=== PATIENT | female | born 1950 | race Two or more races ===

== ENCOUNTER 2020-08-06 13:16 | Outpatient (CLI) | payer MEDICARE, OTHER | END 2020-08-06 23:59 | disposition home or self-care (01) | LOC: CT 13:16 | DX: D35.01 Benign neoplasm of right adrenal gland (principal); N13.2 Hydronephrosis with renal and ureteral calculous obstruction; N73.9 Female pelvic inflammatory disease, unspecified; I70.0 Atherosclerosis of aorta | CPT/HCPCS: 72192-TC ==

== ENCOUNTER 2020-09-28 15:47 | Inpatient (IN) | payer MEDICARE, OTHER ==
[~2020-09-28] VITALS: Ht 162.6 cm; Wt 129.3 kg
--- NOTE | 2020-09-28 16:00 | NUR ---
drew from [facility] for witnessed syncope. vent dependent bg 200 [employer]. vs checked. iv access started on L ac g20. blood draw done sent to lab. seen by
[2020-09-28 17:35] LABS: BASOPHILS # (AUTO) 0.1 /CMM (0.0-0.2); BASOPHILS % (AUTO) 0.5 % (0.0-2.0); EOSINOPHILS % (AUTO) 0.8 % (0.0-6.0); HEMATOCRIT 36 % (33-45); HEMOGLOBIN 11.5 g/dL (11.5-14.8); LYMPHOCYTES # (AUTO) 1.2 /CMM (0.8-4.8); LYMPHOCYTES % (AUTO) 10.7 % (20.0-44.0); MEAN CORPUSCULAR HGB CONC 32 g/dl (31.0-36.0); MEAN CORPUSCULAR VOLUME 90 fL (82-100); MONOCYTES # (AUTO) 0.8 /CMM (0.1-1.30); MONOCYTES % (AUTO) 7.2 % (2.0-12.0); NEUTROPHILS # (AUTO) 8.8 /CMM (1.8-8.9); NEUTROPHILS % (AUTO) 80.8 % (43.0-81.0); PLATELET COUNT (AUTO) 146 /CMM (150-450); WHITE BLOOD COUNT (AUTO) 10.9 K/uL (4.3-11.0)
[2020-09-28 17:41] LABS: CALCIUM, SERUM 9.2 mg/dL (8.5-10.1); CARBON DIOXIDE 30 mmol/L (21-32); CHLORIDE 104 mmol/L (98-107); CREATININE 1.4 mg/dL (0.6-1.3); GLUCOSE 171 mg/dL (74-106); POTASSIUM 4.8 mmol/L (3.5-5.1); SODIUM SERUM 141 mmol/L (136-145); UREA NITROGEN, BLOOD 37 mg/dL (7-18)
[2020-09-28 17:47] LABS: ALANINE AMINOTRANSFERASE 38 U/L (12-78); ALBUMIN 3.4 g/dL (3.4-5.0); ALKALINE PHOSPHATASE 204 U/L (46-116); ASPARTATE AMINOTRANSFERASE 48 U/L (15-37); BILIRUBIN,DIRECT 0.1 mg/dL (0.0-0.2); BILIRUBIN,TOTAL 0.2 mg/dL (0.2-1.0); TOTAL PROTEIN, SERUM 9.4 g/dL (6.4-8.2)
[2020-09-28] MEDS ORDERED: DEXT1DRO3 OP (18:25)
[2020-09-28] MEDS ORDERED: ZINC220C6 PO (18:25)
[2020-09-28] MEDS ORDERED: AZEL205. NS (18:25)
[2020-09-28] MEDS ORDERED: CRAN3875 PO (18:25)
[2020-09-28] MEDS ORDERED: INSU100I4 SQ (18:25)
[2020-09-28] MEDS ORDERED: CLON0.2T PO (18:25)
[2020-09-28] MEDS ORDERED: MAGN400O6 PO (18:25)
[2020-09-28] MEDS ORDERED: DOCU-141 PO (18:25)
[2020-09-28] MEDS ORDERED: AMLO5TAB4 PO (18:25)
[2020-09-28] MEDS ORDERED: ACET325T53 PO (18:25)
[2020-09-28] MEDS ORDERED: BUSP5TAB3 PO (18:25)
[2020-09-28] MEDS ORDERED: ZOLP5TAB2 PO (18:25)
[2020-09-28] MEDS ORDERED: HYDR-4384 PO (18:25)
[2020-09-28] MEDS ORDERED: CHLO473M3 MM (18:25)
[2020-09-28] MEDS ORDERED: OMEP20CA15 PO (18:25)
[2020-09-28] MEDS ORDERED: HEPA100D33 SUBCUT (18:25)
[2020-09-28] MEDS ORDERED: EPOE1VIA7 IJ (18:25)
[2020-09-28] MEDS ORDERED: MONT10TA22 PO (18:25)
[2020-09-28] MEDS ORDERED: AMIN887L PO (18:25)
[2020-09-28] MEDS ORDERED: POTA20TA83 PO (18:25)
[2020-09-28] MEDS ORDERED: ALLO100T PO (18:25)
[2020-09-28] MEDS ORDERED: FURO-145 PO (18:25)
[2020-09-28] MEDS ORDERED: SENN-175 PO (18:25)
[2020-09-28] MEDS ORDERED: BISA10SU11 RC (18:25)
[2020-09-28] MEDS ORDERED: MIDO10TA PO (18:25)
[2020-09-28] MEDS ORDERED: LIDO700A30 TP (18:25)
[2020-09-28] MEDS ORDERED: TAMS-12 PO (18:25)
[2020-09-28] MEDS ORDERED: NA P133E RC (18:25)
[2020-09-28] MEDS ORDERED: ACET-2605 PO ×2 (18:25)
[2020-09-28] MEDS ORDERED: LEVO25TA7 PO (18:25)
[2020-09-28] MEDS ORDERED: FERR325T23 PO (18:25)
[2020-09-28] MEDS ORDERED: BIOT10004 PO (18:25)
[2020-09-28] MEDS ORDERED: IPRA4AER IH ×2 (18:25)
--- NOTE | 2020-09-28 18:31 | NUR ---
PANEL PARCEL POST CARRIER PAGED
[2020-09-28] MEDS ORDERED: MAG HYDROX/AL HYDROX/SIMETH 30 ML UDC PO PRN (19:00)
[2020-09-28] MEDS ORDERED: MAGNESIUM HYDROXIDE 30 ML UDC PO PRN (19:00)
[2020-09-28] MEDS ORDERED: Z GUARD REMEDY 2 OZ OINT TP PRN (19:00)
[2020-09-28] MEDS ORDERED: ONDANSETRON HCL/PF 4 MG/2 ML VIAL IVP PRN (19:00)
[2020-09-28] MEDS ORDERED: ACETAMINOPHEN 325 MG TABLET PO PRN (19:00)
[2020-09-28] MEDS ORDERED: ZOLPIDEM TARTRATE 5 MG TABLET PO PRN (19:00)
--- NOTE | 2020-09-28 19:40 | NUR ---
PT ALERT. PT REFUSED TO ANSWER QUESTIONS, AGITATED. VSS. PT CONNECTED TO THE MONITOR AND POX. WILL CONTINUE TO MONITOR
--- NOTE | 2020-09-28 21:00 | NUR ---
RT AT BEDSIDE
--- NOTE | 2020-09-28 21:41 | NUR ---
PT REPOSITIONED FOR COMFORT. NAD NOTED AT THIS TIME. WILL CONTINUE TO MONITOR PT.
--- NOTE | 2020-09-28 23:06 | NUR ---
VENT SETTINGS: O2:50% RR:16 PEEP:5
--- NOTE | 2020-09-29 03:28 | NUR ---
PT REPOSITIONED ON HER RIGHT SIDE FOR COMFORT. NAD NOTED AT THIS TIME. WILL CONTINUE TO MONITOR PT.
--- NOTE | 2020-09-29 04:38 | NUR ---
RT pt received on mechanical vent with current settings. vent plugged in to red outlet. alarms on and audible. trached, shiley 6 xlt. spare trach at bedside. trach secure with tie. ambu bag at hob. no sob, no resp distress. minimal secretions suctioned via trach. trach care done.
--- NOTE | 2020-09-29 05:53 | NUR ---
PT AWAKE AND WATCHING TV. PT REPOSITIONED ON A SITTING POSITION. PT HAS NO COMPLAINTS AT THIS TIME. WILL CONTINUE TO MONITOR
[2020-09-29 06:06] LABS: BASOPHILS % (AUTO) 0.8 % (0.0-2.0); EOSINOPHILS % (AUTO) 3.8 % (0.0-6.0); HEMATOCRIT 33 % (33-45); HEMOGLOBIN 10.6 g/dL (11.5-14.8); LYMPHOCYTES # (AUTO) 1.8 /CMM (0.8-4.8); LYMPHOCYTES % (AUTO) 30.7 % (20.0-44.0); MEAN CORPUSCULAR HGB CONC 32 g/dl (31.0-36.0); MEAN CORPUSCULAR VOLUME 89 fL (82-100); MONOCYTES # (AUTO) 0.5 /CMM (0.1-1.30); NEUTROPHILS # (AUTO) 3.2 /CMM (1.8-8.9); NEUTROPHILS % (AUTO) 55.7 % (43.0-81.0); PLATELET COUNT (AUTO) 129 /CMM (150-450); RED BLOOD CELL COUNT(AUTO) 3.72 MIL/uL (4.0-5.2); WHITE BLOOD COUNT (AUTO) 5.8 K/uL (4.3-11.0)
[2020-09-29 06:22] LABS: CREATININE 1.2 mg/dL (0.6-1.3); MAGNESIUM 2.3 mg/dL (1.8-2.4); PHOSPHORUS 4.2 mg/dL (2.5-4.9); POTASSIUM 4.1 mmol/L (3.5-5.1)
[2020-09-29 07:50] LABS: THYROID STIMULATING HORMONE 7.106 uIU/mL (0.358-3.74)
[2020-09-29] MEDS: FUROSEMIDE 40 MG/4 ML VIAL IV SCH (08:24)
[2020-09-29] MEDS ORDERED: HYDROCODONE/APAP 5/325MG TABLET ONE ×2 (08:25→14:44)
[2020-09-29] MEDS: HYDROCODONE/APAP 5/325MG TABLET PO PRN ×2 (08:25→14:45)
--- NOTE | 2020-09-29 12:12 | NUR ---
adl care provided. turned and repositioned. wound care done.kept clean and comfortable
--- NOTE | 2020-09-29 19:47 | NUR ---
Pt sat 95%, stated she could not breath, no acute distress noted. Pt was suctioned. vss. Will continue to monitor pt.
--- NOTE | 2020-09-29 20:20 | NUR ---
PT NOTED DIAPHORETIC, TEMP CHECKED 98.3, BG OF 178.
--- NOTE | 2020-09-29 20:46 | NUR ---
PT RESTING COMFORTABLY. REPOSITIONED. PROVIDED WITH COOL BLANKETS.
--- NOTE | 2020-09-29 22:29 | NUR ---
PT MOVED INTO A BIGGER BED, REPOSITIONED, RESTING COMFORTABLY. PT ASKED FOR FOOD, PROVIDED WITH SANDWHICH.
--- NOTE | 2020-09-30 01:41 | NUR ---
PT REQUESTED TO BE SUCTIONED. PT SUCTIONED, REPOSITIONED IN BED, ON MONITOR AND PULSE OX. VSS.
--- NOTE | 2020-09-30 02:01 | NUR ---
RT AT BEDSIDE SPEAKING TO PT.
--- NOTE | 2020-09-30 03:11 | NUR ---
PT RESTING COMFORTABLY. VSS. WATCHING TV.
--- NOTE | 2020-09-30 05:09 | NUR ---
PT REQUESTED TO BE REPOSITIONED, PT'S FOOD REPOSITIONED. PT NOW IN BED, WATCHING TV. VSS.
--- NOTE | 2020-09-30 07:42 | NUR ---
REPORT GIVEN TO GISELA HAN FOR TARA
[2020-09-30] MEDS: FUROSEMIDE 40 MG/4 ML VIAL IV SCH (10:00)
--- NOTE | 2020-09-30 12:55 | NUR ---
pts bp still elevated at 192/78 hr 91. no c/o headache, chest pain or n/v. dr. suarez made aware. awaiting for response
--- NOTE | 2020-09-30 13:53 | NUR ---
DR REARDON RESPONDED. PER , ADD HYDRALAZINE 25MG 1 TAB PO Q6HRS PRN FOR SBP >160
[2020-09-30] MEDS ORDERED: hydrALAZINE HCL 25 MG TABLET PO PRN (14:00)
[2020-09-30] MEDS ORDERED: CLONIDINE HCL 0.1 MG TABLET PO PRN (18:00)
[2020-09-30] MEDS ORDERED: HYPROMELLOSE OP PRN (19:00)
[2020-09-30] MEDS ORDERED: BISACODYL SUPP (10 MG) 10 MG/SUPP.RECT SUPP.RECT RC PRN (19:00)
[2020-09-30] MEDS ORDERED: NA PHOS,M-B/NA PHOS,DI-BA 1 EA ENEMA RC PRN (19:00)
[2020-09-30] MEDS ORDERED: DEXTRAN OP PRN (19:00)
[2020-09-30] MEDS ORDERED: Medication Not On Formulary EA (Ipratropium/Albuterol Sulfate (Combivent Respimat 20-100 IH PRN (19:00)
[2020-09-30] MEDS ORDERED: MAGNESIUM HYDROXIDE 30 ML UDC PO PRN (19:00)
[2020-09-30] MEDS ORDERED: ZOLPIDEM TARTRATE 5 MG TABLET PO PRN (19:00)
--- NOTE | 2020-09-30 19:40 | NUR ---
report given to shaneka whitaker
--- NOTE | 2020-09-30 20:50 | NUR ---
PATIENT IS REPOSITIONED W/ PILLOWS CUSHION TO RELIEVE PRESSURE OFF SACRAL.
[2020-09-30] MEDS: MONTELUKAST SODIUM (10MG) 10 MG TABLET PO SCH (22:00)
[2020-09-30] MEDS ORDERED: MONTELUKAST SODIUM (10MG) 10 MG TABLET ONE (23:51)
--- NOTE | 2020-10-01 00:07 | NUR ---
PATIENT REPOSITIONED FOR PRESSURE RELIEF.
--- NOTE | 2020-10-01 00:17 | NUR ---
PATIENT WANTED TO REMOVE EYE BOOGERS, EYE CARE PROVIDED.
--- NOTE | 2020-10-01 00:28 | NUR ---
TRACH CARE PROVIDED.
--- NOTE | 2020-10-01 04:19 | NUR ---
PATIENT IS C/O PAIN UNDER BUTTOCKS 3/10. TYLENOL GIVEN FOR PRN ORDER.
--- NOTE | 2020-10-01 04:28 | NUR ---
TRACH CARE PROVIDED. PATIENT IS HELPED WITH WASHING EYES. PATIENT IS REPOSITIONED WITH PILLOWS UNDER BOTTOCKS.
--- NOTE | 2020-10-01 04:52 | NUR ---
PATIENT IS REPOSITIONED FOR COMFORT.
[2020-10-01 05:46] LABS: BASOPHILS # (AUTO) 0.1 /CMM (0.0-0.2); BASOPHILS % (AUTO) 0.7 % (0.0-2.0); EOSINOPHILS % (AUTO) 3.7 % (0.0-6.0); HEMATOCRIT 38 % (33-45); HEMOGLOBIN 12.1 g/dL (11.5-14.8); LYMPHOCYTES # (AUTO) 2.3 /CMM (0.8-4.8); LYMPHOCYTES % (AUTO) 27.2 % (20.0-44.0); MEAN CORPUSCULAR HGB CONC 32 g/dl (31.0-36.0); MEAN CORPUSCULAR VOLUME 89 fL (82-100); MONOCYTES # (AUTO) 0.8 /CMM (0.1-1.30); MONOCYTES % (AUTO) 8.8 % (2.0-12.0); NEUTROPHILS # (AUTO) 5.1 /CMM (1.8-8.9); NEUTROPHILS % (AUTO) 59.6 % (43.0-81.0); PLATELET COUNT (AUTO) 161 /CMM (150-450); RED BLOOD CELL COUNT(AUTO) 4.25 MIL/uL (4.0-5.2); WHITE BLOOD COUNT (AUTO) 8.5 K/uL (4.3-11.0)
[2020-10-01 05:58] LABS: CALCIUM, SERUM 9.4 mg/dL (8.5-10.1); CARBON DIOXIDE 34 mmol/L (21-32); CHLORIDE 101 mmol/L (98-107); CREATININE 1.5 mg/dL (0.6-1.3); GLUCOSE 129 mg/dL (74-106); MAGNESIUM 2.1 mg/dL (1.8-2.4); PHOSPHORUS 4.2 mg/dL (2.5-4.9); POTASSIUM 3.9 mmol/L (3.5-5.1); SODIUM SERUM 141 mmol/L (136-145); UREA NITROGEN, BLOOD 38 mg/dL (7-18)
[2020-10-01] MEDS: LEVOTHYROXINE SODIUM 25 MCG TABLET PO SCH (08:00)
[2020-10-01] MEDS ORDERED: POLYVINYL ALCOHOL 15 ML BOTTLE OP PRN (09:00)
[2020-10-01] MEDS ORDERED: FERROUS SULFATE (325 MG) 325 MG/TAB TABLET PO SCH (09:00)
[2020-10-01] MEDS ORDERED: BIOTIN 2000 MCG PO SCH (09:00)
[2020-10-01] MEDS ORDERED: Medication Not On Formulary EA (Cran/Vitc/Mannose/Inulin/Brom (Uti-Stat Liquid) 30 ML) PO SCH (09:00)
[2020-10-01] MEDS ORDERED: POTASSIUM CHLORIDE 20 MEQ TAB.PRT.SR PO SCH (09:00)
[2020-10-01] MEDS ORDERED: IPRATROPIUM NEB FS 0.5 MG/2.5 ML AMPUL.NEB NEB PRN (09:00)
--- NOTE | 2020-10-01 09:12 | NUR ---
PATIENT PROVIDED W BREAKFAST. TOLERATED PO WELL
--- NOTE | 2020-10-01 09:32 | NUR ---
PATIENT PROVIDED W BREAKFAST. TOLERATING PO WELL.
[2020-10-01] MEDS: SENNOSIDES 8.6 MG TABLET PO SCH ×2 (09:43→19:00)
[2020-10-01] MEDS: ZINC SULFATE 220 MG CAPSULE PO SCH (09:43)
[2020-10-01] MEDS: DOCUSATE SODIUM 100 MG CAPSULE PO SCH ×2 (09:43→18:59)
[2020-10-01] MEDS: TAMSULOSIN 0.4 MG CAP.SR.24H PO SCH (09:43)
[2020-10-01] MEDS: FUROSEMIDE 40 MG/4 ML VIAL IV SCH (09:43)
[2020-10-01] MEDS: ALLOPURINOL 100 MG TABLET PO SCH (09:43)
[2020-10-01] MEDS: busPIRone 5 MG TABLET PO SCH ×2 (09:43→19:00)
[2020-10-01] MEDS: PROSTAT (PYXIS) 30 ML UDC PO SCH (10:02)
[2020-10-01] MEDS: AZELASTINE NASAL SPRAY 30 ML BOTTLE NS SCH ×2 (10:22→18:48)
[2020-10-01] MEDS: IPRATROPIUM NEB FS 0.5 MG/2.5 ML AMPUL.NEB NEB SCH ×3 (10:30→19:44)
[2020-10-01] MEDS: ALBUTEROL HALF STRENGTH 1.25 MG/3 ML VIAL.NEB NEB SCH ×3 (10:30→19:44)
[2020-10-01] MEDS: LIDOCAINE 5% (PATCH) 1 EA PATCH TP SCH (10:30)
[2020-10-01] MEDS: AMLODIPINE BESYLATE 5 MG TABLET PO SCH (10:30)
[2020-10-01] MEDS: FIXODENT DENTURE ADHESIVE TUBE MM SCH ×2 (10:42→18:48)
--- NOTE | 2020-10-01 10:55 | NUR ---
CONTACTED RT FOR BREATHING TX
[2020-10-01 11:36] LABS: ABG BASE EXCESS 4.8 mmol/L; ABG OXYGEN SATURATION 97.5 % (92.0-98.5); ABG PCO2 57.4 mmHg (35.0-45.0); ABG PH 7.359 (7.350-7.450); ABG PO2 100.8 mmHg (75.0-100.0); AaDO2 118.4 mmHg; COHb 0.7 % (0.5-1.5); MetHb 0.4 % (0.0-1.5); O2Hb 96.4 % (94.0-97.0); SITE, ABG Right Radial; VENT MODE, BG ac 16 500+5 40%
[2020-10-01 11:45] LABS: IRON, SERUM 46 ug/dl (50-175); TOTAL IRON BINDING CAPACITY 193 ug/dl (250-450)
--- NOTE | 2020-10-01 12:22 | NUR ---
PATIENT REPOSITIONED FOR COMFORT
[2020-10-01 12:28] LABS: FERRITIN 160 ng/mL (8-388)
[2020-10-01] MEDS: hydrALAZINE HCL 50 MG TABLET PO SCH ×2 (13:00→19:01)
--- NOTE | 2020-10-01 13:00 | NUR ---
APRESOLINE 50MG PO NOT AVAILABLE FROM PHARMACY. FOLLOWED UP WITH CARON DIET COUNSELOR FOR A CHANGE OF ORDER, AWAITING CALL BACK.
--- NOTE | 2020-10-01 13:02 | NUR ---
PATIENT PROVIDED W LUNCH. TOLERATED PO WELL
[2020-10-01] MEDS ORDERED: AZELASTINE NASAL SPRAY 30 ML BOTTLE NS ONE (14:03)
--- NOTE | 2020-10-01 16:07 | NUR ---
PATIENT REPOSITIONED FOR COMFORT
--- NOTE | 2020-10-01 16:23 | NUR ---
GOT BED 327-1 RN IS MORAIMA
--- NOTE | 2020-10-01 17:55 | NUR ---
REPORT GIVEN TO ROSEMARY HAN OF TELE UNIT
[2020-10-01 18:10] VITALS: BP 141/64
--- NOTE | 2020-10-01 19:23 | NUR ---
PRODUCT MARKETING ANALYST ADMITTING NOTES ADMITTED PT TO UNIT AT 1805 VIA GURNEY ACCOMPANIED BY E.R KELLIE SUAZO, GRETEL MADISON AND RT. PT IS A/O X3-4. VERBALLY RESPONSIVE, NO C/O PAIN OR ANY DISCOMFORTS AT THIS TIME. PT WITH DX OF SYNCOPE BUT NO C/O SYNCOPE AT THIS TIME. PT ORIENTED TO UNIT AND STAFF. V/S TAKEN AND RECORDED. PT WITH TRACH SHILEY #6 XLY CONNECTED TO MECHANICAL VENTILATOR AT PRESCRIBED PARAMETERS OF AC 500, R 16, FI02 50% AND PEEP 5, TOLERATING SETTINGS WELL WITH NO ACUTE RESPIRATORY DISTRESS NOTED. PT WITH IV ACCESS NOTED ON LAC G#20 INTACT, PATENT AND FLUSHES WELL. PHOTOS OF SKIN ISSUES TAKEN AND FILED IN CHART. EXTERNAL TELEMONITOR APPLIED AND SHOWS CURRENT READING OF SR/ST WITH HR OF 90-105, NO C/O CARDIAC DISTRESS VOICED. DOYLE IN PLACE DRAINING TO GRAVITY CLOUDY YELLOW URINE. SAFETY MEASURES IMPLEMENTED; HOB KEPT ELEVATED. BED PLACED IN LOWEST LOCKED POSITION WITH SR UP X2. CALL LIGHT PLACED W/I EASY REACH OF PT. WILL ENDORSE TO PIN PULLER NURSE FOR TARA.
--- NOTE | 2020-10-01 19:41 | NUR ---
INSPECTOR ADVANCED COMPOSITE NOTES PATIENT ADMITTED TO MEDSURG UNIT FROM ER, WITH NO PERSONAL BELONGINGS. PATIENT ASKING FOR HER BAG. CALLED ER WITH NO RESPONSE. MEDICATIONS BROUGHT FROM ER. WILL ENDORSE TO CHEMICAL COMPOUNDER NURSE.
--- NOTE | 2020-10-01 19:45 | NUR ---
TELERN FULLY AWAKE ABLE TO VERBALIZE HER NEEDS, A/L X3 TO 4. NO RESPIRATORY DISTRESS. PATIENT ON PORTABLE VENT. SUCTIONS SELF ORALLY NEEDED. STATES LOST HER BELONGINGS WILL CALL AND [facility]. ALL NEEDS MADE.
[2020-10-01 20:45] VITALS: BP 137/94
--- NOTE | 2020-10-01 21:30 | NUR ---
TELERN MULTIPLE NEEDS, NEEDS FREQ REPOSITIONING PER PATIENTS COMFORT. SEEN BY RT. PER RT PATIENT CAN USE HER PORTABLE VENT. DUE MEDS ADMINISTERED CRUSHED WITH APPLSAUCE. ASSISTED. ER STAFF ABLE TO FIND HER BELONGING. GIVEN TO PATIENT.
[2020-10-01] MEDS: MONTELUKAST SODIUM (10MG) 10 MG TABLET PO SCH (22:49)
--- NOTE | 2020-10-01 23:20 | NUR ---
TELERN UNABLE TO GET SELF COMFORTABLE. REPOSITIONED, STAYED WITH PATIENT FOR AWHILE. MULTI NEEDS ALL ATTENDED.
[2020-10-01] MEDS: HYDROCODONE/APAP 5/325MG TABLET PO PRN (23:36)
[2020-10-02] MEDS: ALBUTEROL HALF STRENGTH 1.25 MG/3 ML VIAL.NEB NEB SCH ×4 (01:36→19:29)
[2020-10-02] MEDS: IPRATROPIUM NEB FS 0.5 MG/2.5 ML AMPUL.NEB NEB SCH ×4 (01:36→19:29)
--- NOTE | 2020-10-02 03:46 | NUR ---
TELERN ASLEEP OF THIS TIME, PROVIDED QUIET ENVIRONMENT. CLOSELY WATCHED.
--- NOTE | 2020-10-02 06:42 | NUR ---
TELERN SLEEPING IRRITABLE WHEN BOTHERED..REMAINS SR ON THE MONITOR.
[2020-10-02 07:27] LABS: BASOPHILS # (AUTO) 0.1 /CMM (0.0-0.2); BASOPHILS % (AUTO) 0.9 % (0.0-2.0); EOSINOPHILS % (AUTO) 6.8 % (0.0-6.0); HEMATOCRIT 33 % (33-45); HEMOGLOBIN 10.6 g/dL (11.5-14.8); LYMPHOCYTES % (AUTO) 24.3 % (20.0-44.0); MEAN CORPUSCULAR HGB CONC 32 g/dl (31.0-36.0); MEAN CORPUSCULAR VOLUME 89 fL (82-100); MONOCYTES # (AUTO) 0.8 /CMM (0.1-1.30); MONOCYTES % (AUTO) 9.7 % (2.0-12.0); NEUTROPHILS # (AUTO) 4.9 /CMM (1.8-8.9); NEUTROPHILS % (AUTO) 58.3 % (43.0-81.0); PLATELET COUNT (AUTO) 149 /CMM (150-450); RED BLOOD CELL COUNT(AUTO) 3.74 MIL/uL (4.0-5.2); WHITE BLOOD COUNT (AUTO) 8.3 K/uL (4.3-11.0)
[2020-10-02 07:42] LABS: CALCIUM, SERUM 9.1 mg/dL (8.5-10.1); CARBON DIOXIDE 34 mmol/L (21-32); CHLORIDE 103 mmol/L (98-107); CREATININE 1.6 mg/dL (0.6-1.3); GLUCOSE 113 mg/dL (74-106); MAGNESIUM 2.2 mg/dL (1.8-2.4); PHOSPHORUS 3.9 mg/dL (2.5-4.9); POTASSIUM 3.7 mmol/L (3.5-5.1); SODIUM SERUM 142 mmol/L (136-145); UREA NITROGEN, BLOOD 45 mg/dL (7-18)
[2020-10-02 08:00] VITALS: BP 118/59
--- NOTE | 2020-10-02 08:05 | NUR ---
ENTRY SPECIALISTS OPENING NOTE PATIENT IS IN BED RESTING COMFORTABLY. PATIENT IS ON VENT WITH SETTINGS OF AC 500, R 16, FI02 50%, AND PEEP 5. PATIENT TOLERATING WELL WITH NO ACUTE DISTRESS. PATIENT IS ON INSTITUTIONAL RESEARCH COORDINATOR READING SR WITH PAC 87. NO FACIAL GRIMACING OR SIGNS OF PAIN PRESENT. BED ALARM IS ON. CALL LIGHT WITHIN REACH. BED IS IN THE LOWEST POSITION WITH SIDES RAILS UP. WILL CONTINUE TO MONITOR.
[2020-10-02] MEDS: hydrALAZINE HCL 50 MG TABLET PO SCH ×3 (09:00→17:54)
[2020-10-02] MEDS: AMLODIPINE BESYLATE 5 MG TABLET PO SCH (09:00)
--- NOTE | 2020-10-02 09:09 | NUR ---
WOUND CARE CONSULT: PT REFUSED SKIN ASSESSMENT AT THIS TIME. REVIEWED CHART, NURSING DOCUMENTATION AND PHOTOS WHICH INDICATE FULL THICKNESS WOUNDS TO SACRUM AND BUTTOCKS WELL PERIANAL OPEN SKIN , PRESENT ON ADMISSION. RECOMMEND SURGICAL CONSULT. DR GARNER NOTIFIED OF CONSULT REQUEST. RECOMMENDATIONS MADE FOR SKIN PROTECTION. DISCUSSED WITH NURSING STAFF. MD IN AGREEMENT WITH PLAN OF CARE.
[2020-10-02] MEDS: TAMSULOSIN 0.4 MG CAP.SR.24H PO SCH (09:47)
[2020-10-02] MEDS: LEVOTHYROXINE SODIUM 25 MCG TABLET PO SCH (09:47)
[2020-10-02] MEDS: SENNOSIDES 8.6 MG TABLET PO SCH ×2 (09:48→17:54)
[2020-10-02] MEDS: busPIRone 5 MG TABLET PO SCH ×2 (09:48→17:54)
[2020-10-02] MEDS: ZINC SULFATE 220 MG CAPSULE PO SCH (09:48)
[2020-10-02] MEDS: ALLOPURINOL 100 MG TABLET PO SCH (09:48)
[2020-10-02] MEDS: LIDOCAINE 5% (PATCH) 1 EA PATCH TP SCH (09:48)
[2020-10-02] MEDS: DOCUSATE SODIUM 100 MG CAPSULE PO SCH ×2 (09:48→17:54)
[2020-10-02] MEDS: FIXODENT DENTURE ADHESIVE TUBE MM SCH ×2 (09:51→17:55)
[2020-10-02] MEDS: AZELASTINE NASAL SPRAY 30 ML BOTTLE NS SCH ×2 (09:52→17:56)
[2020-10-02 10:13] LABS: ABG BASE EXCESS 4.8 mmol/L; ABG OXYGEN SATURATION 96.9 % (92.0-98.5); ABG PCO2 52.8 mmHg (35.0-45.0); ABG PH 7.386 (7.350-7.450); AaDO2 140.5 mmHg; COHb 0.6 % (0.5-1.5); MetHb 0.3 % (0.0-1.5); SITE, ABG Right Radial; VENT MODE, BG AC 16 500 40% +5
--- NOTE | 2020-10-02 10:16 | NUR ---
TURRET PUNCH PRESS OPERATOR NOTE DID NOT ADMINISTER SCHEDULED MEDICATIONS HYDRALAZINE AND AMLODIPINE DUE TO DECREASED BLOOD PRESSURE OF 118/59.
[2020-10-02] MEDS: PROSTAT (PYXIS) 30 ML UDC PO SCH (10:35)
[2020-10-02] MEDS ORDERED: LORAZEPAM 1 MG TABLET PO PRN (14:00)
--- NOTE | 2020-10-02 15:58 | NUR ---
IRRIGATIONIST DESIGNER NOTE PATIENT REQUESTED ATIVAN, AFTER PULLING AND SCANNING AND CRUSHING, PATIENT REALIZED HER TRACH BALLOON IS INFLATED AT THIS TIME. HOLDING ATIVAN, UNTIL RT WILL DEFLATE TRACH BALLOON.
[2020-10-02 16:00] VITALS: BP 131/76
--- NOTE | 2020-10-02 17:55 | NUR ---
TRAUMA DIRECTOR NOTE PATIENT TOLERATED INFLATED TACHE BALLOON FOR 2 HRS. RT DEFLATED BALLOON, PATIENT TOOK HER SCHEDULED MEDICATIONS INCLUDING ATIVAN.
--- NOTE | 2020-10-02 19:00 | NUR ---
MANUAL TESTER CLOSING NOTES PATIENT IS IN BED RESTING COMFORTABLY. PATIENT IS IN NO ACUTE DISTRESS. NO SOB NOTED. PATIENT IS ON VENT WITH BALLOON DEFLATED AT THE MOMENT. PATIENT IS ON DELIVERY MAN READING SR BBB 102. PATIENT KEPT CLEAN DRY, AND COMFORTABLE THROUGHOUT THE SHIFT BED ALARM IS ON. CALL LIGHT WITHIN REACH. BED IS IN THE LOWEST POSITION WITH SIDES RAILS UP. ENDORSE TO SENIOR SCHEDULER NURSE FOR TARA.
[2020-10-02 20:00] VITALS: BP 108/72
--- NOTE | 2020-10-02 20:31 | NUR ---
RN OPENING NOTES PATIENT RECEIVED RESTING IN BED A/O X 4. TOLERATING VENT SETTINGS WELL BREATHING EVEN AND UNLABORED, NO SOB NOTED. NO SIGNS OF ACUTE DISTRESS. NO COMPLAINTS OF PAIN OR DISCOMFORT AT THE MOMENT. DOYLE CATH NOTED AND IN PLACE. IV LOCATED ON L AC #20 SL. SAFETY PRECAUTIONS IN PLACE WITH BED IN LOWEST POSITION, CALL LIGHT WITHIN REACH, BREAKS ON, SIDE RAILS UP.
[2020-10-02] MEDS: MONTELUKAST SODIUM (10MG) 10 MG TABLET PO SCH (21:38)
[2020-10-03] VITALS (22 sets, daily range): BP systolic 77–206; BP diastolic 21–107
--- NOTE | 2020-10-03 00:30 | NUR ---
NEW DOYLE REINSERTED D/T REMOVAL DURING REPOSITIONING
[2020-10-03] MEDS: ALBUTEROL HALF STRENGTH 1.25 MG/3 ML VIAL.NEB NEB SCH ×4 (01:30→20:05)
[2020-10-03] MEDS: IPRATROPIUM NEB FS 0.5 MG/2.5 ML AMPUL.NEB NEB SCH ×4 (01:30→20:05)
[2020-10-03] MEDS: LEVOTHYROXINE SODIUM 25 MCG TABLET PO SCH (06:03)
--- NOTE | 2020-10-03 06:42 | NUR ---
RN OPENING NOTES PATIENT RESTING IN BED A/O X 3. TOLERATING VENT SETTINGS WELL BREATHING EVEN AND UNLABORED, NO SOB NOTED. NO SIGNS OF ACUTE DISTRESS. NO COMPLAINTS OF PAIN OR DISCOMFORT AT THE MOMENT. DOYLE CATH NOTED AND IN PLACE. IV LOCATED ON L AC #20 SL. SAFETY PRECAUTIONS IN PLACE WITH BED IN LOWEST POSITION, CALL LIGHT WITHIN REACH, BREAKS ON, SIDE RAILS UP. PATIENT KEPT CLEAN AND DRY THROUGHOUT THE NIGHT. ALL NEEDS ATTENDED TO. WILL ENDORSE TO ONCOMING SHIFT ABOUT TARA.
--- NOTE | 2020-10-03 07:30 | NUR ---
rn walked in to rm.being called by orientee to check on pt.rr called pt. slumped over,sitting up,non responsive,dusky color.
--- NOTE | 2020-10-03 07:31 | NUR ---
code blue called.see code blue record.
--- NOTE | 2020-10-03 07:50 | NUR ---
ekg,chest x-ray and labs ordered.transported to icu rm.258.via bed.belongings sent with pt.
--- NOTE | 2020-10-03 07:51 | NUR ---
report to skein yarn drier.
[2020-10-03 08:07] LABS: BASOPHILS # (AUTO) 0.1 /CMM (0.0-0.2); BASOPHILS % (AUTO) 0.6 % (0.0-2.0); EOSINOPHILS % (AUTO) 4.5 % (0.0-6.0); HEMATOCRIT 35 % (33-45); HEMOGLOBIN 10.9 g/dL (11.5-14.8); LYMPHOCYTES # (AUTO) 1.6 /CMM (0.8-4.8); LYMPHOCYTES % (AUTO) 16.2 % (20.0-44.0); MEAN CORPUSCULAR HGB CONC 32 g/dl (31.0-36.0); MEAN CORPUSCULAR VOLUME 89 fL (82-100); MONOCYTES # (AUTO) 0.8 /CMM (0.1-1.30); MONOCYTES % (AUTO) 8.5 % (2.0-12.0); NEUTROPHILS # (AUTO) 6.9 /CMM (1.8-8.9); NEUTROPHILS % (AUTO) 70.2 % (43.0-81.0); PLATELET COUNT (AUTO) 148 /CMM (150-450); RED BLOOD CELL COUNT(AUTO) 3.88 MIL/uL (4.0-5.2); WHITE BLOOD COUNT (AUTO) 9.9 K/uL (4.3-11.0)
[2020-10-03] MEDS ORDERED: EPINEPHRINE (1:10,000) SYRINGE 1 MG/10 ML DISP.SYRIN ONE (08:07)
[2020-10-03] MEDS ORDERED: SODIUM BICARBONATE SYR 50 MEQ/50 ML DISP.SYRIN ONE (08:07)
--- NOTE | 2020-10-03 08:20 | NUR ---
RN INITIAL NOTES RECEIVED PT FROM 3W, SP CODE BLUE. TRACH IN PLACE, ON VENT. RESPIRATORY DISTRESS NOTED. PT NON-VERBAL, NOT ABLE TO FOLLOW COMMANDS. RAC #[address] DOYLE IN PL[address] CONNECTED TO MONITOR. HOB ELEVATED. WILL CLOSELY MONITOR
--- NOTE | 2020-10-03 08:20 | NUR ---
PATIENT FOUND BY STAFF NOT RESPONSIVE. RR CALLED AT 0730. LATER CODE BLUE INITIATED. CONTACTED CHIEF POWER DISPATCHER BELLA GALEANA AND ORDERED STAT CXR, EKG, FOLLOW UP WITH AM LABS. ORDERS CARRIED OUT AND RENDERED. PATIENT TRANSFERRED TO ROOM 258 WITH BELONGINGS, MEDICATIONS, AND CHART. REPORT GIVEN TO AM SHIFT WITH ICU NURSE.
[2020-10-03 08:40] LABS: CALCIUM, SERUM 9.3 mg/dL (8.5-10.1); CREATININE 1.3 mg/dL (0.6-1.3); MAGNESIUM 2.2 mg/dL (1.8-2.4); PHOSPHORUS 3.9 mg/dL (2.5-4.9); POTASSIUM 3.8 mmol/L (3.5-5.1)
[2020-10-03] MEDS: TAMSULOSIN 0.4 MG CAP.SR.24H PO SCH (09:00)
[2020-10-03] MEDS: ZINC SULFATE 220 MG CAPSULE PO SCH (09:00)
[2020-10-03] MEDS: SENNOSIDES 8.6 MG TABLET PO SCH ×2 (09:00→16:37)
[2020-10-03] MEDS: PROSTAT (PYXIS) 30 ML UDC PO SCH (09:00)
[2020-10-03] MEDS: busPIRone 5 MG TABLET PO SCH ×2 (09:00→16:37)
[2020-10-03] MEDS: FIXODENT DENTURE ADHESIVE TUBE MM SCH ×2 (09:00→16:37)
[2020-10-03] MEDS: ALLOPURINOL 100 MG TABLET PO SCH (09:00)
[2020-10-03] MEDS: AMLODIPINE BESYLATE 5 MG TABLET PO SCH (09:00)
[2020-10-03] MEDS: DOCUSATE SODIUM 100 MG CAPSULE PO SCH ×2 (09:00→16:37)
[2020-10-03] MEDS: hydrALAZINE HCL 50 MG TABLET PO SCH ×3 (09:00→16:37)
[2020-10-03 09:35] LABS: ABG BASE EXCESS 4.1 mmol/L; ABG OXYGEN SATURATION 88.9 % (92.0-98.5); ABG PCO2 46.1 mmHg (35.0-45.0); ABG PH 7.421 (7.350-7.450); ABG PO2 52.5 mmHg (75.0-100.0); AaDO2 288.4 mmHg; COHb 0.6 % (0.5-1.5); O2Hb 88.4 % (94.0-97.0); PEEP,BG 0 cm H2O; SITE, ABG Right Radial; VT, ABG 450 mL
[2020-10-03] MEDS: PROPOFOL 100 ML IV PRN ×5 (10:09→22:20)
[2020-10-03] MEDS: AZELASTINE NASAL SPRAY 30 ML BOTTLE NS SCH ×2 (10:10→16:37)
[2020-10-03] MEDS: LIDOCAINE 5% (PATCH) 1 EA PATCH TP SCH (10:10)
[2020-10-03] MEDS ORDERED: SUCCINYLCHOLINE CHLORIDE 20 MG/ML VIAL ONE (11:18)
[2020-10-03] MEDS ORDERED: ETOMIDATE 2 MG/ML VIAL ONE (11:18)
[2020-10-03] MEDS: methylPREDNISolone SOD SUCC 125 MG/2ML VIAL IV SCH (16:39)
[2020-10-03] MEDS: ENOXAPARIN SODIUM 40 MG/0.4 ML DISP.SYRIN SQ SCH (16:40)
--- NOTE | 2020-10-03 18:45 | NUR ---
RN CLOSING NOTES NO SIGNIFICANT CHANGE NOTED. TRACH IN PLACE, ON VENT. KEPT SEDATED. KEPT CLEAN AND DRY. KEPT COMFORTABLE. BLE ELEVATED. WILL ENDORSE FOR CONTINUITY OF CARE.
[2020-10-03] MEDS: MONTELUKAST SODIUM (10MG) 10 MG TABLET PO SCH (21:29)
--- NOTE | 2020-10-03 21:29 | NUR ---
montelukast tablet not given pt is sedated with propofol per
--- NOTE | 2020-10-03 22:05 | NUR ---
SEEN BY ALLY GALEANA GLOBAL ANALYTICS HEAD, REPORTED TO HER THAT PT IS NPO SINCE AM AND HER URINE OUTPUT IS LITTLE LOW WITH ORDER TO START PT ON D5NS @ 70ML/HR NOTED AND CARRIED OUT, WILL CONT TO MONITOR
[2020-10-03] MEDS: IV D5/ 0.9% NACL 1,000 ML IV PRN (22:21)
[2020-10-04] VITALS (39 sets, daily range): BP systolic 84–134; BP diastolic 37–73
[2020-10-04] MEDS: ALBUTEROL HALF STRENGTH 1.25 MG/3 ML VIAL.NEB NEB SCH ×4 (01:48→20:08)
[2020-10-04] MEDS: IPRATROPIUM NEB FS 0.5 MG/2.5 ML AMPUL.NEB NEB SCH ×4 (01:48→20:08)
[2020-10-04] MEDS: PROPOFOL 100 ML IV PRN ×7 (02:03→23:55)
[2020-10-04 04:38] LABS: BASOPHILS % (AUTO) 0.1 % (0.0-2.0); HEMATOCRIT 32 % (33-45); HEMOGLOBIN 10.3 g/dL (11.5-14.8); LYMPHOCYTES # (AUTO) 1.6 /CMM (0.8-4.8); LYMPHOCYTES % (AUTO) 10.3 % (20.0-44.0); MEAN CORPUSCULAR HGB CONC 32 g/dl (31.0-36.0); MEAN CORPUSCULAR VOLUME 88 fL (82-100); MONOCYTES # (AUTO) 0.5 /CMM (0.1-1.30); MONOCYTES % (AUTO) 3.3 % (2.0-12.0); NEUTROPHILS # (AUTO) 13.1 /CMM (1.8-8.9); NEUTROPHILS % (AUTO) 86.3 % (43.0-81.0); PLATELET COUNT (AUTO) 157 /CMM (150-450); WHITE BLOOD COUNT (AUTO) 15.2 K/uL (4.3-11.0)
[2020-10-04 04:50] LABS: ALANINE AMINOTRANSFERASE 42 U/L (12-78); ALBUMIN 2.8 g/dL (3.4-5.0); ALKALINE PHOSPHATASE 132 U/L (46-116); ASPARTATE AMINOTRANSFERASE 50 U/L (15-37); BILIRUBIN,TOTAL 0.4 mg/dL (0.2-1.0); CALCIUM, SERUM 9.4 mg/dL (8.5-10.1); CARBON DIOXIDE 31 mmol/L (21-32); CHLORIDE 101 mmol/L (98-107); GLUCOSE 179 mg/dL (74-106); MAGNESIUM 2.3 mg/dL (1.8-2.4); PHOSPHORUS 3.6 mg/dL (2.5-4.9); POTASSIUM 3.9 mmol/L (3.5-5.1); SODIUM SERUM 139 mmol/L (136-145); TOTAL PROTEIN, SERUM 7.9 g/dL (6.4-8.2); UREA NITROGEN, BLOOD 55 mg/dL (7-18)
[2020-10-04 06:25] LABS: ABG BASE EXCESS 5.2 mmol/L; ABG OXYGEN SATURATION 96.8 % (92.0-98.5); ABG PCO2 39.7 mmHg (35.0-45.0); ABG PH 7.482 (7.350-7.450); ABG PO2 83.1 mmHg (75.0-100.0); AaDO2 337.2 mmHg; COHb 0.1 % (0.5-1.5); MetHb 0.3 % (0.0-1.5); O2Hb 96.4 % (94.0-97.0); PEEP,BG 0 cm H2O; SITE, ABG Left Radial; VENT MODE, BG AC 28 450 65%; VT, ABG 450 mL
[2020-10-04] MEDS: LEVOTHYROXINE SODIUM 25 MCG TABLET PO SCH (07:00)
--- NOTE | 2020-10-04 08:45 | NUR ---
[facility], sedated on diprivan at 50mcg, SR, T/V, sat well on 65% 02, f/c OK output, v/s stable, no pain, pt turned and repositioned.
[2020-10-04] MEDS: hydrALAZINE HCL 50 MG TABLET PO SCH ×3 (09:00→17:00)
[2020-10-04] MEDS: FIXODENT DENTURE ADHESIVE TUBE MM SCH ×2 (09:00→17:00)
[2020-10-04] MEDS: PROSTAT (PYXIS) 30 ML UDC PO SCH (09:00)
[2020-10-04] MEDS: TAMSULOSIN 0.4 MG CAP.SR.24H PO SCH (09:00)
[2020-10-04] MEDS: DOCUSATE SODIUM 100 MG CAPSULE PO SCH ×2 (09:00→17:00)
[2020-10-04] MEDS: ALLOPURINOL 100 MG TABLET PO SCH (09:00)
[2020-10-04] MEDS: AMLODIPINE BESYLATE 5 MG TABLET PO SCH (09:00)
[2020-10-04] MEDS: ZINC SULFATE 220 MG CAPSULE PO SCH (09:00)
[2020-10-04] MEDS: SENNOSIDES 8.6 MG TABLET PO SCH ×2 (09:00→17:00)
[2020-10-04] MEDS: busPIRone 5 MG TABLET PO SCH ×2 (09:00→17:00)
[2020-10-04] MEDS: AZELASTINE NASAL SPRAY 30 ML BOTTLE NS SCH ×2 (09:29→17:43)
[2020-10-04] MEDS: LIDOCAINE 5% (PATCH) 1 EA PATCH TP SCH (09:35)
[2020-10-04] MEDS: ENOXAPARIN SODIUM 40 MG/0.4 ML DISP.SYRIN SQ SCH (09:36)
[2020-10-04] MEDS: methylPREDNISolone SOD SUCC 125 MG/2ML VIAL IV SCH ×2 (09:38→17:48)
[2020-10-04] MEDS: IV D5/ 0.9% NACL 1,000 ML IV PRN (12:41)
--- NOTE | 2020-10-04 16:57 | NUR ---
pt is resting in the bed, sedated on Diprivan at 50mcg, SR, sat well, good urine output, v/s stable, no pain, pt cleaned, changed and repositioned.
[2020-10-04] MEDS: MONTELUKAST SODIUM (10MG) 10 MG TABLET PO SCH (21:45)
[2020-10-05] VITALS (36 sets, daily range): BP systolic 81–142; BP diastolic 41–72
[2020-10-05] MEDS: ALBUTEROL HALF STRENGTH 1.25 MG/3 ML VIAL.NEB NEB SCH ×4 (02:02→19:45)
[2020-10-05] MEDS: IPRATROPIUM NEB FS 0.5 MG/2.5 ML AMPUL.NEB NEB SCH ×4 (02:02→19:45)
[2020-10-05] MEDS: PROPOFOL 100 ML IV PRN ×7 (02:39→23:43)
[2020-10-05] MEDS: IV D5/ 0.9% NACL 1,000 ML IV PRN ×2 (02:42→18:00)
[2020-10-05 05:47] LABS: BASOPHILS % (AUTO) 0.1 % (0.0-2.0); EOSINOPHILS % (AUTO) 0.1 % (0.0-6.0); HEMATOCRIT 34 % (33-45); HEMOGLOBIN 10.8 g/dL (11.5-14.8); LYMPHOCYTES # (AUTO) 0.9 /CMM (0.8-4.8); LYMPHOCYTES % (AUTO) 8.9 % (20.0-44.0); MEAN CORPUSCULAR HGB CONC 32 g/dl (31.0-36.0); MEAN CORPUSCULAR VOLUME 89 fL (82-100); MONOCYTES # (AUTO) 0.6 /CMM (0.1-1.30); MONOCYTES % (AUTO) 5.7 % (2.0-12.0); NEUTROPHILS # (AUTO) 8.6 /CMM (1.8-8.9); NEUTROPHILS % (AUTO) 85.2 % (43.0-81.0); PLATELET COUNT (AUTO) 161 /CMM (150-450); RED BLOOD CELL COUNT(AUTO) 3.79 MIL/uL (4.0-5.2); WHITE BLOOD COUNT (AUTO) 10.1 K/uL (4.3-11.0)
[2020-10-05 05:54] LABS: CARBON DIOXIDE 27 mmol/L (21-32); CHLORIDE 102 mmol/L (98-107); CREATININE 1.8 mg/dL (0.6-1.3); GLUCOSE 171 mg/dL (74-106); MAGNESIUM 2.4 mg/dL (1.8-2.4); PHOSPHORUS 3.4 mg/dL (2.5-4.9); POTASSIUM 3.6 mmol/L (3.5-5.1); SODIUM SERUM 139 mmol/L (136-145); UREA NITROGEN, BLOOD 58 mg/dL (7-18)
[2020-10-05] MEDS: LEVOTHYROXINE SODIUM 25 MCG TABLET PO SCH (07:00)
[2020-10-05] MEDS: TAMSULOSIN 0.4 MG CAP.SR.24H PO SCH (08:19)
[2020-10-05] MEDS: busPIRone 5 MG TABLET PO SCH ×2 (08:19→16:15)
[2020-10-05] MEDS: DOCUSATE SODIUM 100 MG CAPSULE PO SCH ×2 (08:19→16:15)
[2020-10-05] MEDS: hydrALAZINE HCL 50 MG TABLET PO SCH ×3 (08:19→16:14)
[2020-10-05] MEDS: ZINC SULFATE 220 MG CAPSULE PO SCH (08:20)
[2020-10-05] MEDS: SENNOSIDES 8.6 MG TABLET PO SCH ×2 (08:20→16:15)
[2020-10-05] MEDS: ALLOPURINOL 100 MG TABLET PO SCH (08:20)
[2020-10-05] MEDS: PROSTAT (PYXIS) 30 ML UDC PO SCH (08:20)
[2020-10-05] MEDS: AMLODIPINE BESYLATE 5 MG TABLET PO SCH (08:20)
[2020-10-05 08:47] LABS: ABG OXYGEN SATURATION 96.4 % (92.0-98.5); ABG PCO2 29.6 mmHg (35.0-45.0); ABG PH 7.544 (7.350-7.450); ABG PO2 79.8 mmHg (75.0-100.0); AaDO2 315.4 mmHg; COHb 0.3 % (0.5-1.5); MetHb 0.1 % (0.0-1.5); SITE, ABG Right Radial; VENT MODE, BG ac28 450 60% 0
[2020-10-05] MEDS: methylPREDNISolone SOD SUCC 125 MG/2ML VIAL IV SCH ×2 (09:18→18:06)
[2020-10-05] MEDS: LIDOCAINE 5% (PATCH) 1 EA PATCH TP SCH (09:18)
[2020-10-05] MEDS: ENOXAPARIN SODIUM 40 MG/0.4 ML DISP.SYRIN SQ SCH (09:19)
[2020-10-05] MEDS: FIXODENT DENTURE ADHESIVE TUBE MM SCH ×2 (09:35→16:16)
[2020-10-05] MEDS: AZELASTINE NASAL SPRAY 30 ML BOTTLE NS SCH ×2 (09:35→16:17)
--- NOTE | 2020-10-05 11:30 | NUR ---
Sedation vacation went well, tolerated well, following commands, Diprivan drip @10mcg/kg/min, OK to live this rate per Dr Jackson, if distress will happen increase the rate
--- NOTE | 2020-10-05 18:30 | NUR ---
UNABLE TO TOLERATE LOW LEVEL OF PROPOFOL, BECOME TACHYCARDIC, RR WENT UP TO 38, RETURNED TO PREVIOUS RATE OF 50MCG/KG/MIN, RR WENT BACK TO RR 26-27, HR BACK TO 102, CONT TO MONITOR, PATIENT IS SUCTIONED, AIR BALLOON SLIGHTLY DEFLATED, ENDORSE TO RT DEPARTMENT VIA PHONE CALL
--- NOTE | 2020-10-05 18:59 | NUR ---
CLOSING NOTES REMAINS IN THE BED, RESTING COMFORTABLY, WILL ENDORSE TO PM SHIFT RN FOR TARA
[2020-10-05] MEDS: MONTELUKAST SODIUM (10MG) 10 MG TABLET PO SCH (21:22)
[2020-10-06] VITALS (41 sets, daily range): BP systolic 72–140; BP diastolic 32–63
[2020-10-06] MEDS: ALBUTEROL HALF STRENGTH 1.25 MG/3 ML VIAL.NEB NEB SCH ×4 (01:39→19:36)
[2020-10-06] MEDS: IPRATROPIUM NEB FS 0.5 MG/2.5 ML AMPUL.NEB NEB SCH ×4 (01:39→19:36)
[2020-10-06] MEDS: PROPOFOL 100 ML IV PRN ×3 (02:25→08:35)
[2020-10-06 04:36] LABS: HEMATOCRIT 33 % (33-45); HEMOGLOBIN 10.5 g/dL (11.5-14.8); LYMPHOCYTES # (AUTO) 1.1 /CMM (0.8-4.8); LYMPHOCYTES % (AUTO) 5.8 % (20.0-44.0); MEAN CORPUSCULAR HGB CONC 32 g/dl (31.0-36.0); MEAN CORPUSCULAR VOLUME 89 fL (82-100); MONOCYTES # (AUTO) 0.9 /CMM (0.1-1.30); MONOCYTES % (AUTO) 4.7 % (2.0-12.0); NEUTROPHILS # (AUTO) 16.3 /CMM (1.8-8.9); NEUTROPHILS % (AUTO) 89.5 % (43.0-81.0); PLATELET COUNT (AUTO) 146 /CMM (150-450); RED BLOOD CELL COUNT(AUTO) 3.75 MIL/uL (4.0-5.2); WHITE BLOOD COUNT (AUTO) 18.2 K/uL (4.3-11.0)
[2020-10-06 04:50] LABS: CALCIUM, SERUM 8.7 mg/dL (8.5-10.1); CARBON DIOXIDE 26 mmol/L (21-32); CHLORIDE 102 mmol/L (98-107); CREATININE 2.3 mg/dL (0.6-1.3); GLUCOSE 186 mg/dL (74-106); MAGNESIUM 2.1 mg/dL (1.8-2.4); POTASSIUM 3.5 mmol/L (3.5-5.1); SODIUM SERUM 141 mmol/L (136-145); UREA NITROGEN, BLOOD 64 mg/dL (7-18)
[2020-10-06] MEDS: LEVOTHYROXINE SODIUM 25 MCG TABLET PO SCH (06:33)
--- NOTE | 2020-10-06 07:15 | NUR ---
ROUTE CARRIER NOTES RECEIVED PATIENT SEDATED , RESPONSIVE TO DEEP PAIN STIMULI , NOT IN ACUTE DISTRESS , RESPIRATIONS EVEN AND UNLABORED WITH SPO2 OF 98% , TRACH OF SHILE XLT IN PLACE , SR89 ON BEDSIDE MONITOR , FC DRAINING VIA GRAVITY , BEHZAD MIDLINE WITH DIPRIVAN @50MCG/KG/MIN , D5NS @ 70ML/HR INFUSING WELL , ALL NEEDS ATTENDED , WILL CONTINUE TO MONITOR ,
[2020-10-06] MEDS: IV D5/ 0.9% NACL 1,000 ML IV PRN (08:35)
[2020-10-06] MEDS: TAMSULOSIN 0.4 MG CAP.SR.24H PO SCH ×2 (08:37→08:57)
[2020-10-06] MEDS: DOCUSATE SODIUM 100 MG CAPSULE PO SCH ×3 (08:37→16:14)
[2020-10-06] MEDS: ALLOPURINOL 100 MG TABLET PO SCH ×2 (08:37→08:57)
[2020-10-06] MEDS: SENNOSIDES 8.6 MG TABLET PO SCH ×3 (08:37→16:15)
[2020-10-06] MEDS: methylPREDNISolone SOD SUCC 125 MG/2ML VIAL IV SCH ×2 (08:37→16:17)
[2020-10-06] MEDS: ZINC SULFATE 220 MG CAPSULE PO SCH ×2 (08:37→08:57)
[2020-10-06] MEDS: busPIRone 5 MG TABLET PO SCH ×3 (08:37→16:14)
[2020-10-06] MEDS: LIDOCAINE 5% (PATCH) 1 EA PATCH TP SCH (08:37)
[2020-10-06] MEDS: AZELASTINE NASAL SPRAY 30 ML BOTTLE NS SCH ×2 (08:38→16:16)
[2020-10-06] MEDS: hydrALAZINE HCL 50 MG TABLET PO SCH (08:38)
[2020-10-06] MEDS: FIXODENT DENTURE ADHESIVE TUBE MM SCH ×2 (08:38→16:15)
[2020-10-06] MEDS: AMLODIPINE BESYLATE 5 MG TABLET PO SCH (08:38)
[2020-10-06] MEDS: PROSTAT (PYXIS) 30 ML UDC PO SCH ×2 (08:39→08:57)
[2020-10-06] MEDS: ENOXAPARIN SODIUM 40 MG/0.4 ML DISP.SYRIN SQ SCH (08:47)
--- NOTE | 2020-10-06 12:19 | NUR ---
PLATFORM ATTENDANT NOTES SEDATION VACATION @ 1100 , PT STABLE , TOLERATING VENT SETTINGS , NO DISTRESS , WILL CONTINUE TO MONITOR ,
--- NOTE | 2020-10-06 15:55 | NUR ---
EDUCATION PROFESSOR NOTES SEEN AND EVALUATED BY DR REARDON, DISCUSSED LABS , PT OFF DIPRIVAN , NOT WAKING UP AT ALL , RESPONSIVE TO DEEP PAIN STIMULI , DISCUSSED CURRENT VENT SETTINGS , SPO2 OF 98% WITH NO DISTRESS , LOW URINE OUTPUT , MD AWARE .
--- NOTE | 2020-10-06 16:27 | NUR ---
ART INSTALLER NOTES NOTIFIED DR REARDON REGARDING PT TEMP OF 99 , PT HAS NO GT OR NGT ACCESS , PER MD START PT ON TYLENOL SUPP 650MG Q6 , ORDER CARRIED OUT
--- NOTE | 2020-10-06 16:47 | NUR ---
EXECUTIVE OFFICER NOTES URINE COLLECTED LABELED AND SENT TO LAB
--- NOTE | 2020-10-06 19:34 | NUR ---
DIRECT MARKETING MANAGER NOTES PATIENT STABLE AT THIS TIME , OFF SEDATION , RESPONSIVE TO DEEP PAIN STIMULI , NOT IN ACUTE DISTRESS , RESPIRATIONS EVEN AND UNLABORED WITH SPO2 OF 98% , TRACH OF SHILE XLT IN PLACE , SR 87 ON BEDSIDE MONITOR , FC DRAINING VIA GRAVITY , BEHZAD MIDLINE SL, ALL NEEDS ATTENDED , REPORT GIVEN TO HARDEEP FOR CONTINUITY OF CARE
[2020-10-06 21:16] LABS: BILIRUBIN,URINE MODERATE (NEGATIVE); COLOR,URINE YELLOW (YELLOW); LEUKOCYTE ESTERASE ,URINE LARGE (NEGATIVE); NITRITE, URINE NEGATIVE (NEGATIVE); PROTEIN,URINE 100 mg/dl (NEGATIVE); UGLUCOSE NEGATIVE (NEGATIVE)
[2020-10-06 21:18] LABS: CREATININE, URINE 184.2 MG/DL (30.0-125.0); URINE TOTAL PROTEIN 158.1 mg/dL (0-11.9)
[2020-10-06 21:50] LABS: EOSINOPHIL,URINE None Seen
[2020-10-06 21:51] LABS: BACTERIA,URINE 3+ /HPF (None Seen); RBC,URINE 21-50 /HPF (0-2); WBC,URINE 51-80 /HPF (0-3)
[2020-10-06] MEDS: MONTELUKAST SODIUM (10MG) 10 MG TABLET PO SCH (21:51)
[2020-10-06] MEDS: ACETAMINOPHEN 650 MG/SUPP.RECT RC PRN (21:58)
[2020-10-07] VITALS (34 sets, daily range): BP systolic 107–147; BP diastolic 43–68
[2020-10-07] MEDS: IPRATROPIUM NEB FS 0.5 MG/2.5 ML AMPUL.NEB NEB SCH ×4 (01:05→20:07)
[2020-10-07] MEDS: ALBUTEROL HALF STRENGTH 1.25 MG/3 ML VIAL.NEB NEB SCH ×4 (01:05→20:07)
[2020-10-07 05:08] LABS: EOSINOPHILS % (AUTO) 0.1 % (0.0-6.0); HEMATOCRIT 32 % (33-45); HEMOGLOBIN 10.2 g/dL (11.5-14.8); LYMPHOCYTES # (AUTO) 0.6 /CMM (0.8-4.8); LYMPHOCYTES % (AUTO) 5.6 % (20.0-44.0); MEAN CORPUSCULAR HGB CONC 32 g/dl (31.0-36.0); MEAN CORPUSCULAR VOLUME 89 fL (82-100); MONOCYTES # (AUTO) 0.5 /CMM (0.1-1.30); MONOCYTES % (AUTO) 4.2 % (2.0-12.0); NEUTROPHILS # (AUTO) 9.7 /CMM (1.8-8.9); NEUTROPHILS % (AUTO) 90.1 % (43.0-81.0); PLATELET COUNT (AUTO) 124 /CMM (150-450); RED BLOOD CELL COUNT(AUTO) 3.56 MIL/uL (4.0-5.2); WHITE BLOOD COUNT (AUTO) 10.8 K/uL (4.3-11.0)
[2020-10-07 05:25] LABS: CARBON DIOXIDE 23 mmol/L (21-32); CHLORIDE 104 mmol/L (98-107); CREATININE 2.7 mg/dL (0.6-1.3); GLUCOSE 163 mg/dL (74-106); MAGNESIUM 2.3 mg/dL (1.8-2.4); PHOSPHORUS 4.7 mg/dL (2.5-4.9); SODIUM SERUM 143 mmol/L (136-145); UREA NITROGEN, BLOOD 79 mg/dL (7-18)
--- NOTE | 2020-10-07 06:53 | NUR ---
ENDING NOTES; PATIENT NOT ON A DRIPS, WHEN REPOSITIONED, NAME SPOKEN, SHOULDER SHAKEN , SHE IS OBTUNDED. BLOOD PRESSUE 117/56 HR 96 SATS 97% TEMP WAS 100.7 WITH TYLENOL AND COOLING MEASURES LATEST TEMP 100. BLOOD CULTURE WERE DONE AND A URINE SPECIMEMN. WOUND WITH DRESSING CDI'SHE IS MAX ASSIST SHE IS A NO CODE CHARGE NURSE SPOKE TO THE BROTHER LAST NIGHT AND RECEIVED THE ORDER SKIN WARM AND DRY.
[2020-10-07] MEDS: LEVOTHYROXINE SODIUM 25 MCG TABLET PO SCH (07:00)
[2020-10-07] MEDS: ENOXAPARIN SODIUM 40 MG/0.4 ML DISP.SYRIN SQ SCH (09:00)
[2020-10-07] MEDS: TAMSULOSIN 0.4 MG CAP.SR.24H PO SCH (09:00)
[2020-10-07] MEDS: LIDOCAINE 5% (PATCH) 1 EA PATCH TP SCH (09:21)
[2020-10-07] MEDS: DOCUSATE SODIUM 100 MG CAPSULE PO SCH ×2 (09:21→17:20)
[2020-10-07] MEDS: busPIRone 5 MG TABLET PO SCH ×2 (09:21→17:20)
[2020-10-07] MEDS: methylPREDNISolone SOD SUCC 125 MG/2ML VIAL IV SCH ×2 (09:22→17:20)
[2020-10-07] MEDS: SENNOSIDES 8.6 MG TABLET PO SCH ×2 (09:22→17:21)
[2020-10-07] MEDS: PROSTAT (PYXIS) 30 ML UDC PO SCH (09:24)
[2020-10-07] MEDS: AZELASTINE NASAL SPRAY 30 ML BOTTLE NS SCH ×2 (09:25→17:22)
[2020-10-07] MEDS: FIXODENT DENTURE ADHESIVE TUBE MM SCH ×2 (09:25→17:22)
[2020-10-07] MEDS: ALLOPURINOL 100 MG TABLET PO SCH (09:27)
[2020-10-07] MEDS: ZINC SULFATE 220 MG CAPSULE PO SCH (09:27)
[2020-10-07] MEDS: MONTELUKAST SODIUM (10MG) 10 MG TABLET PO SCH (21:28)
[2020-10-08] VITALS (25 sets, daily range): BP systolic 120–151; BP diastolic 51–78
[2020-10-08] MEDS: ALBUTEROL HALF STRENGTH 1.25 MG/3 ML VIAL.NEB NEB SCH ×4 (01:39→19:35)
[2020-10-08] MEDS: IPRATROPIUM NEB FS 0.5 MG/2.5 ML AMPUL.NEB NEB SCH ×4 (01:39→19:35)
[2020-10-08] MEDS: LEVOTHYROXINE SODIUM 25 MCG TABLET PO SCH (08:07)
[2020-10-08] MEDS: methylPREDNISolone SOD SUCC 125 MG/2ML VIAL IV SCH ×2 (09:41→17:46)
[2020-10-08] MEDS: LIDOCAINE 5% (PATCH) 1 EA PATCH TP SCH (09:41)
[2020-10-08] MEDS: SENNOSIDES 8.6 MG TABLET PO SCH ×2 (09:42→17:45)
[2020-10-08] MEDS: ALLOPURINOL 100 MG TABLET PO SCH (09:42)
[2020-10-08] MEDS: TAMSULOSIN 0.4 MG CAP.SR.24H PO SCH (09:42)
[2020-10-08] MEDS: ZINC SULFATE 220 MG CAPSULE PO SCH (09:42)
[2020-10-08] MEDS: busPIRone 5 MG TABLET PO SCH ×2 (09:42→17:46)
[2020-10-08] MEDS: ENOXAPARIN SODIUM 40 MG/0.4 ML DISP.SYRIN SQ SCH (09:43)
[2020-10-08] MEDS: DOCUSATE SODIUM 100 MG CAPSULE PO SCH ×2 (09:43→17:46)
[2020-10-08] MEDS: PROSTAT (PYXIS) 30 ML UDC PO SCH (09:44)
[2020-10-08] MEDS: AZELASTINE NASAL SPRAY 30 ML BOTTLE NS SCH ×2 (09:45→18:55)
[2020-10-08] MEDS: FIXODENT DENTURE ADHESIVE TUBE MM SCH ×2 (09:46→18:55)
[2020-10-08 12:27] LABS: *SPE A/G RATIO 0.6 (0.7-1.7); *SPE ALBUMIN 2.9 g/dL (2.9-4.4); *SPE ALPHA-1-GLOBULIN 0.4 g/dL (0.0-0.4); *SPE BETA GLOBULIN 0.9 g/dL (0.7-1.3); *SPE GLOBULIN, TOTAL 4.5 g/dL (2.2-3.9); *SPE M-SPIKE Not Observed g/dL (Not Observed); *SPEGAMMA GLOBULIN 2.3 g/dL (0.4-1.8)
--- NOTE | 2020-10-08 14:00 | NUR ---
DRAWBRIDGE TENDER PT DOWNGRADED TO TELE STATUS. TRANSFERRED BY BED WITH MONITOR TO 3W. REPORT GIVEN TO JACQUELINE.
--- NOTE | 2020-10-08 14:00 | NUR ---
ICU/RN NOTE RECEIVED THE PATIENT FROM ICU PER ACLS PROTOCOL. THE PATIENT IS IN NO APPARENT DISTRESS. WILL CONTINUE TO MONITOR.
--- NOTE | 2020-10-08 14:22 | NUR ---
pt transferred from icu 258 to 3 [facility] 315 bed 1. pt placed into HT70 mechanical ventilator with same settings below: AC 22 VT 450 ML FIO2 45% peep +5 vent plugged into red outlet with alarms on and functioning. sangita @ head of the board. Addendum: 10/08/20 at 1425 by DONOVAN CASTILLO RT Amended: Links added.
--- NOTE | 2020-10-08 16:55 | NUR ---
RN NOTE PER DR REARDON: MAY USE NG TUBE FOR MEDICATION ADMINISTRATION. THE ORDER IS NOTED AND CARRIED OUT.
[2020-10-08 18:15] LABS: ALANINE AMINOTRANSFERASE 28 U/L (12-78); ALKALINE PHOSPHATASE 121 U/L (46-116); ASPARTATE AMINOTRANSFERASE 40 U/L (15-37); BILIRUBIN,TOTAL 0.8 mg/dL (0.2-1.0); CALCIUM, SERUM 9.3 mg/dL (8.5-10.1); CARBON DIOXIDE 23 mmol/L (21-32); CHLORIDE 105 mmol/L (98-107); CREATININE 3.1 mg/dL (0.6-1.3); GLUCOSE 184 mg/dL (74-106); MAGNESIUM 2.8 mg/dL (1.8-2.4); PHOSPHORUS 5.2 mg/dL (2.5-4.9); POTASSIUM 4.5 mmol/L (3.5-5.1); SODIUM SERUM 142 mmol/L (136-145); TOTAL PROTEIN, SERUM 7.6 g/dL (6.4-8.2)
--- NOTE | 2020-10-08 18:23 | NUR ---
ICU/RN NOTE THE PATIENT IS IN BED AND ON VENT, SEDATED. THE PATIENT IS IN NO APPARENT DISTRESS. RESPIRATION REGULAR AND UNLABORED. DOYLE PRESENT AND NO BLADDER DISTENSION NOTED. BEHZAD MIDLINE PATENT AND SALINE LOCKED. BED LOW AND LOCKED. SIDE RAILS UP X3. CALL LIGHT WITHIN REACH. WILL ENDORSE TO FRINGING MACHINE OPERATOR.
[2020-10-08 19:04] LABS: ALBUMIN 1.9 g/dL (3.4-5.0)
[2020-10-08] MEDS: IV NS 0.9% 1,000 ML IV PRN (19:10)
[2020-10-08 19:17] LABS: UREA NITROGEN, BLOOD 110 mg/dL (7-18)
--- NOTE | 2020-10-08 19:30 | NUR ---
SENIOR SAFETY SUPPORT MANAGER NOTE: PATIENT RESTING IN BED, NO ACUTE DISTRESS NOTED. BREATHING EVEN AND UNLABORED, NO SOB NOTED. VENT SETTINGS IN PLACE. DOYLE CATHETER IN PLACE, EMPTY AT THIS TIME. MIDLINE TO LEFT UPPER ARM IN PLACE. IV TO RAC IN PLACE. NG TUBE TO LEFT NOSTRIL IN PLACE, CLAMPED AT THIS TIME. HOB ELEVATED. BED LOCKED AND IN LOWEST POSITION, WILL CONTINUE TO MONITOR.
[2020-10-08 19:53] LABS: BASOPHILS % (AUTO) 0.3 % (0.0-2.0); EOSINOPHILS % (AUTO) 0.1 % (0.0-6.0); HEMATOCRIT 32 % (33-45); HEMOGLOBIN 10.4 g/dL (11.5-14.8); LYMPHOCYTES # (AUTO) 0.7 /CMM (0.8-4.8); LYMPHOCYTES % (AUTO) 5.6 % (20.0-44.0); MEAN CORPUSCULAR HGB CONC 32 g/dl (31.0-36.0); MEAN CORPUSCULAR VOLUME 87 fL (82-100); MONOCYTES # (AUTO) 0.8 /CMM (0.1-1.30); MONOCYTES % (AUTO) 7.2 % (2.0-12.0); NEUTROPHILS # (AUTO) 10.2 /CMM (1.8-8.9); NEUTROPHILS % (AUTO) 86.8 % (43.0-81.0); PLATELET COUNT (AUTO) 154 /CMM (150-450); WHITE BLOOD COUNT (AUTO) 11.7 K/uL (4.3-11.0)
[2020-10-08] MEDS: MONTELUKAST SODIUM (10MG) 10 MG TABLET PO SCH (22:42)
[2020-10-09] VITALS (7 sets, daily range): BP systolic 129–139; BP diastolic 57–75
[2020-10-09] MEDS: ACETAMINOPHEN 650 MG/SUPP.RECT RC PRN (00:14)
--- NOTE | 2020-10-09 00:15 | NUR ---
SECURITY CHECKER NOTE: PATIENT NOTED WITH ELEVATED TEMPERATURE, COOLING MEASURES PROVIDED, TYLENOL 650MG SUPPOSITORY GIVEN PER MD ORDER. WILL CONTINUE TO MONITOR.
[2020-10-09] MEDS: IPRATROPIUM NEB FS 0.5 MG/2.5 ML AMPUL.NEB NEB SCH ×4 (01:01→19:44)
[2020-10-09] MEDS: ALBUTEROL HALF STRENGTH 1.25 MG/3 ML VIAL.NEB NEB SCH ×4 (01:01→19:45)
--- NOTE | 2020-10-09 06:30 | NUR ---
ON SITE MANAGER NOTE: PATIENT RESTING IN BED, NO ACUTE DISTRESS NOTED. BREATHING EVEN AND UNLABORED, NO SOB NOTED. VENT SETTINGS IN PLACE. DOYLE CATHETER IN PLACE. MIDLINE TO LEFT UPPER ARM IN PLACE. IV TO RAC IN PLACE. NG TUBE TO LEFT NOSTRIL IN PLACE, CLAMPED AT THIS TIME. HOB ELEVATED. BED LOCKED AND IN LOWEST POSITION, WILL ENDORSE TO DAY NURSE TO CONTINUE WITH PLAN OF CARE.
[2020-10-09 06:55] LABS: BASOPHILS % (AUTO) 0.1 % (0.0-2.0); EOSINOPHILS % (AUTO) 0.2 % (0.0-6.0); HEMATOCRIT 30 % (33-45); HEMOGLOBIN 9.8 g/dL (11.5-14.8); LYMPHOCYTES # (AUTO) 0.8 /CMM (0.8-4.8); LYMPHOCYTES % (AUTO) 4.9 % (20.0-44.0); MEAN CORPUSCULAR HGB CONC 32 g/dl (31.0-36.0); MEAN CORPUSCULAR VOLUME 87 fL (82-100); MONOCYTES # (AUTO) 1.1 /CMM (0.1-1.30); MONOCYTES % (AUTO) 6.8 % (2.0-12.0); NEUTROPHILS # (AUTO) 13.5 /CMM (1.8-8.9); PLATELET COUNT (AUTO) 147 /CMM (150-450); RED BLOOD CELL COUNT(AUTO) 3.46 MIL/uL (4.0-5.2); WHITE BLOOD COUNT (AUTO) 15.4 K/uL (4.3-11.0)
--- NOTE | 2020-10-09 07:45 | NUR ---
NETWORK TECHNICAL ANALYST OPENING NOTES PT DOWNGRADED TO TELE STATUS. PT RECEIVED FROM ULTRASONOGRAPHER. NONVERBAL VENT TO LILIANA MUELLER XLT #6, VENT SETTINGS: AC 22 TV 450 FIO2 45% PEEP 5 APPEARS COMFORTABLE, IN NO DISTRESS OR PAIN AT THIS TIME. NG TUBE TO LEFT NARE, CLAMPED AT THIS TIME, FOR MEDICATION ADMINISTRATION ONLY. MIDLINE TO LEFT UPPER ARM INFUSING NORMAL SALINE @125ML/HR, NO SIGNS OF INFILTRATION SEEN. SAFETY MEASURES IN PLACE, SIDE RAILS X3 IN UPRIGHT POSITION, BED IN LOW SETTING, BRAKES LOCKED. CALL LIGHT WITHIN REACH. WILL CONTINUE TO MONITOR AND ENSURE SAFETY.
[2020-10-09 08:01] LABS: ALANINE AMINOTRANSFERASE 25 U/L (12-78); ALBUMIN 1.7 g/dL (3.4-5.0); ALKALINE PHOSPHATASE 107 U/L (46-116); ASPARTATE AMINOTRANSFERASE 31 U/L (15-37); BILIRUBIN,TOTAL 0.8 mg/dL (0.2-1.0); CALCIUM, SERUM 8.7 mg/dL (8.5-10.1); CARBON DIOXIDE 23 mmol/L (21-32); CHLORIDE 107 mmol/L (98-107); CREATININE 3.3 mg/dL (0.6-1.3); GLUCOSE 183 mg/dL (74-106); MAGNESIUM 2.7 mg/dL (1.8-2.4); PHOSPHORUS 5.4 mg/dL (2.5-4.9); POTASSIUM 4.2 mmol/L (3.5-5.1); SODIUM SERUM 143 mmol/L (136-145); TOTAL PROTEIN, SERUM 7.1 g/dL (6.4-8.2)
[2020-10-09 08:14] LABS: UREA NITROGEN, BLOOD 117 mg/dL (7-18)
[2020-10-09] MEDS: ALLOPURINOL 100 MG TABLET PO SCH (08:23)
--- NOTE | 2020-10-09 08:45 | NUR ---
MS/RN S/B Dr Lovett Seen by MD - morning labs ordered.
[2020-10-09] MEDS: DOCUSATE SODIUM 100 MG CAPSULE PO SCH ×2 (08:54→17:04)
[2020-10-09] MEDS: SENNOSIDES 8.6 MG TABLET PO SCH ×2 (08:55→17:03)
[2020-10-09] MEDS: LEVOTHYROXINE SODIUM 25 MCG TABLET PO SCH (08:55)
[2020-10-09] MEDS: ZINC SULFATE 220 MG CAPSULE PO SCH (08:55)
[2020-10-09] MEDS: ENOXAPARIN SODIUM 40 MG/0.4 ML DISP.SYRIN SQ SCH (08:56)
[2020-10-09] MEDS: methylPREDNISolone SOD SUCC 125 MG/2ML VIAL IV SCH ×2 (08:56→17:04)
[2020-10-09] MEDS: TAMSULOSIN 0.4 MG CAP.SR.24H PO SCH (08:56)
[2020-10-09] MEDS: busPIRone 5 MG TABLET PO SCH ×2 (08:56→17:03)
[2020-10-09] MEDS: LIDOCAINE 5% (PATCH) 1 EA PATCH TP SCH (08:57)
[2020-10-09] MEDS: FIXODENT DENTURE ADHESIVE TUBE MM SCH ×2 (08:58→17:14)
--- NOTE | 2020-10-09 09:00 | NUR ---
MS/RN Medications Morning medications administered via NGT, tube flushed with water before and after administration.
[2020-10-09] MEDS: AZELASTINE NASAL SPRAY 30 ML BOTTLE NS SCH ×2 (09:06→17:14)
--- NOTE | 2020-10-09 09:15 | NUR ---
MS/RN Labs Morning labs reviewed: -WBC 15.4 All other values within normal range.
[2020-10-09] MEDS: IV NS 0.9% 1,000 ML IV PRN (09:27)
[2020-10-09] MEDS: PROSTAT (PYXIS) 30 ML UDC PO SCH (09:27)
--- NOTE | 2020-10-09 10:57 | NUR ---
MS/RN S/B Dr Mead Seen by Dr Mead - morning labs ordered, awaiting chest x-ray from this morning.
--- NOTE | 2020-10-09 18:05 | NUR ---
MS/ RN CLOSING NOTES PT LYING IN BED WITH EYES CLOSED. NO S/S OF DISTRESS. NO SOB. EVEN AND UNLABORED BREATHING NOTED. VENT SETTINGS: PEEP 5, FIO2 45%< TIDAL VOLUME 450. BEHZAD MIDLINE, RAC GAUGE 20 INTACT AND PATENT RUNNING NORMAL SALINE AT 125 ML/ HR. NG TUBE ON LEFT NASAL IN PLACE. PT POSITIONED IN FOWLERS POSITION. TURNED AND REPOSITIONED. BED IS ON LOWEST POSITION WITH BED ALARM ON. CALL LIGHT IS WITHIN REACH. WILL ENDORSE TO CHILD AND FAMILY SERVICES SPECIALIST FOR CONTINUITY OF CARE.
--- NOTE | 2020-10-09 19:55 | NUR ---
CIVIL DRAFTSMAN NOTE: PATIENT RESTING IN BED, NO ACUTE DISTRESS NOTED. BREATHING EVEN AND UNLABORED, NO SOB NOTED. VENT SETTINGS IN PLACE. DOYLE CATHETER IN PLACE. MIDLINE TO LEFT UPPER ARM IN PLACE. IV TO RAC IN PLACE. NG TUBE TO LEFT NOSTRIL IN PLACE, CLAMPED AT THIS TIME. HOB ELEVATED. BED LOCKED AND IN LOWEST POSITION, WILL CONTINUE TO MONITOR.
[2020-10-09] MEDS: MONTELUKAST SODIUM (10MG) 10 MG TABLET PO SCH (21:32)
[2020-10-10] MEDS: IPRATROPIUM NEB FS 0.5 MG/2.5 ML AMPUL.NEB NEB SCH ×4 (00:51→20:38)
[2020-10-10] MEDS: ALBUTEROL HALF STRENGTH 1.25 MG/3 ML VIAL.NEB NEB SCH ×4 (00:51→20:45)
[2020-10-10 01:50] VITALS: BP 142/84
--- NOTE | 2020-10-10 06:15 | NUR ---
DIRECTOR ECONOMIC NOTE: PATIENT RESTING IN BED, NO ACUTE DISTRESS NOTED. BREATHING EVEN AND UNLABORED, NO SOB NOTED. VENT SETTINGS IN PLACE. DOYLE CATHETER IN PLACE. MIDLINE TO LEFT UPPER ARM IN PLACE. IV TO RAC IN PLACE. NG TUBE TO LEFT NOSTRIL IN PLACE, CLAMPED AT THIS TIME. HOB ELEVATED. NOTED WITH 1 EPISODE OF BLEEDING FROM SACRAL/ANAL WOUND. BED LOCKED AND IN LOWEST POSITION, WILL ENDORSE TO DAY NURSE TO CONTINUE WITH PLAN OF CARE.
[2020-10-10 06:28] LABS: BASOPHILS % (AUTO) 0.1 % (0.0-2.0); EOSINOPHILS % (AUTO) 0.2 % (0.0-6.0); HEMATOCRIT 34 % (33-45); HEMOGLOBIN 10.6 g/dL (11.5-14.8); LYMPHOCYTES # (AUTO) 0.9 /CMM (0.8-4.8); LYMPHOCYTES % (AUTO) 6.4 % (20.0-44.0); MEAN CORPUSCULAR HGB CONC 31 g/dl (31.0-36.0); MEAN CORPUSCULAR VOLUME 89 fL (82-100); MONOCYTES # (AUTO) 0.6 /CMM (0.1-1.30); MONOCYTES % (AUTO) 4.6 % (2.0-12.0); NEUTROPHILS # (AUTO) 11.9 /CMM (1.8-8.9); NEUTROPHILS % (AUTO) 88.7 % (43.0-81.0); PLATELET COUNT (AUTO) 168 /CMM (150-450); RED BLOOD CELL COUNT(AUTO) 3.81 MIL/uL (4.0-5.2); WHITE BLOOD COUNT (AUTO) 13.5 K/uL (4.3-11.0)
[2020-10-10 06:40] LABS: ABG BASE EXCESS -7.2 mmol/L; ABG OXYGEN SATURATION 92.7 % (92.0-98.5); ABG PH 7.335 (7.350-7.450); ABG PO2 69.4 mmHg (75.0-100.0); AaDO2 212.8 mmHg; MetHb 0.3 % (0.0-1.5); O2Hb 92.4 % (94.0-97.0); PEEP,BG 5 cm H2O; SITE, ABG Left Radial; VENT MODE, BG VENT AC; VT, ABG 450 mL
--- NOTE | 2020-10-10 07:30 | NUR ---
PT RECEIVED RESTING COMFORTABLY IN BED. NO S/S OR C/O PAIN OR DISTRESS NOTED. SIDE RAILS UP X2, CALL LIGHT LEFT WITHIN REACH WILL CONTINUE PLAN OF CARE.
[2020-10-10 07:41] LABS: CALCIUM, SERUM 9.2 mg/dL (8.5-10.1); CARBON DIOXIDE 18 mmol/L (21-32); CHLORIDE 107 mmol/L (98-107); CREATININE 3.5 mg/dL (0.6-1.3); GLUCOSE 231 mg/dL (74-106); SODIUM SERUM 143 mmol/L (136-145)
[2020-10-10 08:00] VITALS: BP 123/76
[2020-10-10 08:11] LABS: UREA NITROGEN, BLOOD 143 mg/dL (7-18)
[2020-10-10] MEDS: methylPREDNISolone SOD SUCC 125 MG/2ML VIAL IV SCH ×2 (08:50→16:12)
[2020-10-10] MEDS: LIDOCAINE 5% (PATCH) 1 EA PATCH TP SCH (08:50)
[2020-10-10] MEDS: LEVOTHYROXINE SODIUM 25 MCG TABLET PO SCH (08:50)
[2020-10-10] MEDS: TAMSULOSIN 0.4 MG CAP.SR.24H PO SCH (08:51)
[2020-10-10] MEDS: DOCUSATE SODIUM 100 MG CAPSULE PO SCH ×2 (08:51→16:12)
[2020-10-10] MEDS: busPIRone 5 MG TABLET PO SCH ×2 (08:51→16:12)
[2020-10-10] MEDS: SENNOSIDES 8.6 MG TABLET PO SCH ×2 (08:51→16:13)
[2020-10-10] MEDS: FIXODENT DENTURE ADHESIVE TUBE MM SCH ×2 (08:51→16:15)
[2020-10-10] MEDS: PROSTAT (PYXIS) 30 ML UDC PO SCH (08:51)
[2020-10-10] MEDS: AZELASTINE NASAL SPRAY 30 ML BOTTLE NS SCH ×2 (08:51→16:16)
[2020-10-10] MEDS: ZINC SULFATE 220 MG CAPSULE PO SCH (08:52)
[2020-10-10] MEDS: ALLOPURINOL 100 MG TABLET PO SCH (08:52)
[2020-10-10] MEDS: ENOXAPARIN SODIUM 40 MG/0.4 ML DISP.SYRIN SQ SCH (08:55)
[2020-10-10 11:14] LABS: LYMPHOCYTES % (MANUAL) 12 % (16-48); MONOCYTES % (MANUAL) 4 % (0-11.0); MYELOCYTES % 2 % (0-0); NEUTROPHILS % (MANUAL) 82 (42-76)
[2020-10-10 11:16] VITALS: BP 112/60
[2020-10-10 16:00] VITALS: BP 135/64
[2020-10-10] MEDS: MEROPENEM 500 MG in IV NS 0.9% 50 ML IV SCH (16:28)
[2020-10-10 20:00] VITALS: BP 99/60
--- NOTE | 2020-10-10 20:33 | NUR ---
CHANGE OF SHIFT REPORT OT RESTING COMFORTABLY IN BED. NO S/S OR C/O PAIN OR DISTRESS NOTED. SIDE RAILS UP X2, CALL LIGHT LEFT WITHIN REACH. PT KEPT CLEAN DRY AND COMFORTABLE. NO SIGNIFICANT CHANGES SINCE PREVIOUS SHIFT. REPORT GIVEN TO NIKOLE HAN.
[2020-10-10] MEDS: ALBUTEROL FS 2.5 MG/0.5 ML VIAL.NEB NEB PRN (20:38)
[2020-10-10] MEDS: MONTELUKAST SODIUM (10MG) 10 MG TABLET PO SCH (22:23)
[2020-10-10] MEDS: IV NS 0.9% 1,000 ML IV PRN (22:46)
[2020-10-11] VITALS (7 sets, daily range): BP systolic 92–125; BP diastolic 56–68
[2020-10-11] MEDS: IPRATROPIUM NEB FS 0.5 MG/2.5 ML AMPUL.NEB NEB SCH ×4 (02:37→20:20)
[2020-10-11] MEDS: ALBUTEROL HALF STRENGTH 1.25 MG/3 ML VIAL.NEB NEB SCH ×4 (02:37→20:20)
[2020-10-11] MEDS: MEROPENEM 500 MG in IV NS 0.9% 50 ML IV SCH ×2 (04:13→15:07)
[2020-10-11] MEDS: LEVOTHYROXINE SODIUM 25 MCG TABLET PO SCH (06:34)
[2020-10-11 07:13] LABS: BASOPHILS % (AUTO) 0.1 % (0.0-2.0); HEMATOCRIT 34 % (33-45); HEMOGLOBIN 10.6 g/dL (11.5-14.8); LYMPHOCYTES # (AUTO) 0.8 /CMM (0.8-4.8); LYMPHOCYTES % (AUTO) 3.6 % (20.0-44.0); MEAN CORPUSCULAR HGB CONC 32 g/dl (31.0-36.0); MEAN CORPUSCULAR VOLUME 88 fL (82-100); MONOCYTES # (AUTO) 0.5 /CMM (0.1-1.30); MONOCYTES % (AUTO) 2.2 % (2.0-12.0); NEUTROPHILS # (AUTO) 20.8 /CMM (1.8-8.9); NEUTROPHILS % (AUTO) 94.1 % (43.0-81.0); PLATELET COUNT (AUTO) 207 /CMM (150-450); RED BLOOD CELL COUNT(AUTO) 3.81 MIL/uL (4.0-5.2); WHITE BLOOD COUNT (AUTO) 22.1 K/uL (4.3-11.0)
--- NOTE | 2020-10-11 07:30 | NUR ---
MS/RN Opening note Patient received from editor managing newspaper. Trach shiley XLT6 to vent, settings: AC 22 TV 450 FIO2 45% Peep 5 Appears in no respiratory distress at this time, saturation 98%. Tele reading NSR - ST. Midline to left upper arm flushing well with normal saline, no signs of infiltration seen. Remains NPO, NGT to left nare clamped, being used for medication only. Safety measures in place, bed in low setting, side rails X3 in upright position, will continue to monitor and ensure safety.
[2020-10-11 07:35] LABS: CALCIUM, SERUM 8.8 mg/dL (8.5-10.1); CARBON DIOXIDE 20 mmol/L (21-32); CHLORIDE 108 mmol/L (98-107); CREATININE 3.8 mg/dL (0.6-1.3); GLUCOSE 246 mg/dL (74-106); POTASSIUM 5.9 mmol/L (3.5-5.1); SODIUM SERUM 145 mmol/L (136-145)
[2020-10-11 08:08] LABS: UREA NITROGEN, BLOOD 176 mg/dL (7-18)
--- NOTE | 2020-10-11 08:32 | NUR ---
MS/RN Labs Labs reviewed: -WBC 22 -H&H 10.6
[2020-10-11] MEDS: LIDOCAINE 5% (PATCH) 1 EA PATCH TP SCH (08:48)
[2020-10-11] MEDS: methylPREDNISolone SOD SUCC 125 MG/2ML VIAL IV SCH ×2 (08:48→16:47)
[2020-10-11] MEDS: DOCUSATE SODIUM 100 MG CAPSULE PO SCH ×2 (08:49→16:47)
[2020-10-11] MEDS: TAMSULOSIN 0.4 MG CAP.SR.24H PO SCH (08:49)
[2020-10-11] MEDS: busPIRone 5 MG TABLET PO SCH ×2 (08:49→16:48)
[2020-10-11] MEDS: PROSTAT (PYXIS) 30 ML UDC PO SCH (08:58)
[2020-10-11] MEDS: ZINC SULFATE 220 MG CAPSULE PO SCH (08:59)
[2020-10-11] MEDS: SENNOSIDES 8.6 MG TABLET PO SCH ×2 (08:59→16:48)
[2020-10-11] MEDS: AZELASTINE NASAL SPRAY 30 ML BOTTLE NS SCH ×2 (09:07→16:55)
[2020-10-11] MEDS: FIXODENT DENTURE ADHESIVE TUBE MM SCH ×2 (09:07→16:55)
[2020-10-11] MEDS: ENOXAPARIN SODIUM 40 MG/0.4 ML DISP.SYRIN SQ SCH (09:07)
[2020-10-11] MEDS: ALLOPURINOL 100 MG TABLET PO SCH (09:08)
[2020-10-11 09:40] LABS: BAND % (MANUAL) 10 % (0.0-5.0); LYMPHOCYTES % (MANUAL) 4 % (16-48); MONOCYTES % (MANUAL) 2 % (0-11.0); MYELOCYTES % 3 % (0-0); NEUTROPHILS % (MANUAL) 81 (42-76)
[2020-10-11] MEDS ORDERED: FUROSEMIDE 40 MG/4 ML VIAL IV ONE ×2 (10:00→20:00)
[2020-10-11] MEDS ORDERED: SODIUM POLYSTYRENE SULFONATE 15 G/60 ML BOTTLE PO ONE ×2 (10:00→20:00)
--- NOTE | 2020-10-11 10:00 | NUR ---
MS/correctional sergeant update Brother Jose called requesting update and to speak with MD assigned to his sister. Charles Epps DNP provided with contact information. -Jose
[2020-10-11] MEDS ORDERED: DEXTROSE 50%-WATER 50 ML DISP.SYRIN IVP ONE ×2 (10:30→20:00)
[2020-10-11] MEDS ORDERED: INSULIN REGULAR, HUMAN 100 UNIT/ML 10 ML VIAL IV ONE (10:30)
--- NOTE | 2020-10-11 12:00 | NUR ---
MS/RN S/B Dr Epps Seen by DNP - family requesting neurology consult, and will then decide if to continue with treatment or withdrawal vent and make patient for comfort measures only. Dr Lutz notifed by Dr Epps.
--- NOTE | 2020-10-11 18:25 | NUR ---
MS/RN End note Patient remains in stable condition, will endorse to maintenance mechanic 2nd shift.
[2020-10-11] MEDS: IV NS 0.9% 1,000 ML IV PRN (18:26)
[2020-10-11 19:36] LABS: CALCIUM, SERUM 8.6 mg/dL (8.5-10.1); CARBON DIOXIDE 21 mmol/L (21-32); CHLORIDE 111 mmol/L (98-107); CREATININE 4.3 mg/dL (0.6-1.3); GLUCOSE 274 mg/dL (74-106); SODIUM SERUM 146 mmol/L (136-145)
[2020-10-11 19:39] LABS: POTASSIUM 6.3 mmol/L (3.5-5.1); UREA NITROGEN, BLOOD 183 mg/dL (7-18)
[2020-10-11] MEDS ORDERED: INSULIN REGULAR, HUMAN 100 UNIT/ML 3 ML VIAL IV ONE (20:00)
[2020-10-11] MEDS ORDERED: Calcium Gluconate 0.465 MEQ/ML VIAL IV ONE ×2 (20:00→22:54)
[2020-10-11] MEDS ORDERED: SODIUM BICARBONATE SYR 50 MEQ/50 ML DISP.SYRIN IV ONE (20:00)
[2020-10-11] MEDS ORDERED: FUROSEMIDE 40 MG/4 ML VIAL ONE (22:14)
[2020-10-11] MEDS ORDERED: SODIUM BICARBONATE SYR 50 MEQ/50 ML DISP.SYRIN ONE (22:14)
[2020-10-11] MEDS ORDERED: DEXTROSE 50%-WATER 50 ML DISP.SYRIN ONE (22:15)
[2020-10-11] MEDS: MONTELUKAST SODIUM (10MG) 10 MG TABLET PO SCH (22:27)
[2020-10-11] MEDS ORDERED: SODIUM POLYSTYRENE SULFONATE 15 G/60 ML BOTTLE ONE (22:54)
[2020-10-12] VITALS: BP 113/65
[2020-10-12] MEDS: ALBUTEROL HALF STRENGTH 1.25 MG/3 ML VIAL.NEB NEB SCH ×4 (01:34→19:30)
[2020-10-12] MEDS: IPRATROPIUM NEB FS 0.5 MG/2.5 ML AMPUL.NEB NEB SCH ×4 (01:34→19:41)
[2020-10-12] MEDS: MEROPENEM 500 MG in IV NS 0.9% 50 ML IV SCH ×2 (03:09→15:23)
[2020-10-12] MEDS: IV NS 0.9% 1,000 ML IV PRN ×2 (03:15→15:27)
[2020-10-12 04:00] VITALS: BP 124/65
[2020-10-12 07:08] LABS: BASOPHILS % (AUTO) 0.1 % (0.0-2.0); HEMATOCRIT 33 % (33-45); HEMOGLOBIN 10.3 g/dL (11.5-14.8); LYMPHOCYTES # (AUTO) 0.7 /CMM (0.8-4.8); LYMPHOCYTES % (AUTO) 2.9 % (20.0-44.0); MEAN CORPUSCULAR HGB CONC 31 g/dl (31.0-36.0); MEAN CORPUSCULAR VOLUME 89 fL (82-100); MONOCYTES # (AUTO) 0.3 /CMM (0.1-1.30); MONOCYTES % (AUTO) 1.5 % (2.0-12.0); NEUTROPHILS # (AUTO) 21.9 /CMM (1.8-8.9); NEUTROPHILS % (AUTO) 95.5 % (43.0-81.0); PLATELET COUNT (AUTO) 207 /CMM (150-450); RED BLOOD CELL COUNT(AUTO) 3.77 MIL/uL (4.0-5.2); WHITE BLOOD COUNT (AUTO) 22.9 K/uL (4.3-11.0)
[2020-10-12 07:23] LABS: CALCIUM, SERUM 8.9 mg/dL (8.5-10.1); CARBON DIOXIDE 20 mmol/L (21-32); CHLORIDE 110 mmol/L (98-107); CREATININE 4.5 mg/dL (0.6-1.3); GLUCOSE 310 mg/dL (74-106); SODIUM SERUM 147 mmol/L (136-145)
[2020-10-12 07:25] LABS: POTASSIUM 6.4 mmol/L (3.5-5.1); UREA NITROGEN, BLOOD 196 mg/dL (7-18)
--- NOTE | 2020-10-12 07:55 | NUR ---
MS RN OPENING NOTES RECEIVED PT LYING IN BED WITH EYES CLOSED. NO S/S OF DISTRESS. NO SOB. EVEN AND UNLABORED BREATHING NOTED. VENT SETTINGS: PEEP 5, FIO2 45%< TIDAL VOLUME 450. BEHZAD MIDLINE, RAC GAUGE 20 INTACT AND PATENT RUNNING NORMAL SALINE AT 125 ML/ HR. NG TUBE ON LEFT NASAL IN PLACE. PT POSITIONED IN FOWLERS POSITION. TURNED AND REPOSITIONED. BED IS ON LOWEST POSITION AND LOCKED WITH SIDE RAILS UPX2 AND CALL LIGHT IS WITHIN REACH. WILL CONTINUE TO MONITOR PATIENT
[2020-10-12 08:00] VITALS: BP 100/53
[2020-10-12 08:24] LABS: BAND % (MANUAL) 1 % (0.0-5.0); LYMPHOCYTES % (MANUAL) 3 % (16-48); MONOCYTES % (MANUAL) 4 % (0-11.0); NEUTROPHILS % (MANUAL) 92 (42-76)
[2020-10-12] MEDS ORDERED: DEXTROSE 50%-WATER 50 ML DISP.SYRIN IVP ONE (08:30)
[2020-10-12] MEDS ORDERED: SODIUM POLYSTYRENE SULFONATE 15 G/60 ML BOTTLE NG ONE (08:30)
[2020-10-12] MEDS ORDERED: INSULIN REGULAR, HUMAN 100 UNIT/ML 3 ML VIAL IV ONE (08:30)
[2020-10-12] MEDS: PROSTAT (PYXIS) 30 ML UDC PO SCH (09:00)
[2020-10-12] MEDS: AZELASTINE NASAL SPRAY 30 ML BOTTLE NS SCH ×2 (09:00→16:42)
[2020-10-12] MEDS: ALLOPURINOL 100 MG TABLET PO SCH (09:00)
[2020-10-12] MEDS: FIXODENT DENTURE ADHESIVE TUBE MM SCH ×2 (09:00→16:41)
[2020-10-12] MEDS: LEVOTHYROXINE SODIUM 25 MCG TABLET PO SCH ×2 (09:33→10:17)
--- NOTE | 2020-10-12 10:00 | NUR ---
RN NOTES RECEIVED ENDORSEMENT FROM GUILLE GOTTI, FOR TARA.
[2020-10-12] MEDS: DOCUSATE SODIUM 100 MG CAPSULE PO SCH ×2 (10:17→16:44)
[2020-10-12] MEDS: SENNOSIDES 8.6 MG TABLET PO SCH ×2 (10:17→16:44)
[2020-10-12] MEDS: ZINC SULFATE 220 MG CAPSULE PO SCH (10:17)
[2020-10-12] MEDS: TAMSULOSIN 0.4 MG CAP.SR.24H PO SCH (10:18)
[2020-10-12] MEDS: busPIRone 5 MG TABLET PO SCH ×2 (10:18→16:44)
[2020-10-12] MEDS: methylPREDNISolone SOD SUCC 125 MG/2ML VIAL IV SCH ×2 (10:19→16:44)
[2020-10-12] MEDS: LIDOCAINE 5% (PATCH) 1 EA PATCH TP SCH (10:19)
[2020-10-12] MEDS: ENOXAPARIN SODIUM 40 MG/0.4 ML DISP.SYRIN SQ SCH (10:38)
--- NOTE | 2020-10-12 11:17 | NUR ---
RN NOTES PATIENT WAS SEEN BY DR. JACKSON TODAY [facility]
[2020-10-12 12:26] LABS: ABG BASE EXCESS -8.3 mmol/L; ABG OXYGEN SATURATION 94.8 % (92.0-98.5); ABG PCO2 39.2 mmHg (35.0-45.0); ABG PH 7.277 (7.350-7.450); ABG PO2 81.3 mmHg (75.0-100.0); AaDO2 592.5 mmHg; COHb 0.3 % (0.5-1.5); MetHb 0.1 % (0.0-1.5); O2Hb 94.4 % (94.0-97.0); PEEP,BG 5 cm H2O; SITE, ABG Right Radial; VT, ABG 450 mL
[2020-10-12 15:06] LABS: CALCIUM, SERUM 8.4 mg/dL (8.5-10.1); CARBON DIOXIDE 19 mmol/L (21-32); CHLORIDE 112 mmol/L (98-107); CREATININE 4.6 mg/dL (0.6-1.3); GLUCOSE 328 mg/dL (74-106); SODIUM SERUM 148 mmol/L (136-145)
[2020-10-12 15:12] LABS: POTASSIUM 6.6 mmol/L (3.5-5.1); UREA NITROGEN, BLOOD 212 mg/dL (7-18)
[2020-10-12 16:00] VITALS: BP 103/55
--- NOTE | 2020-10-12 16:48 | NUR ---
RN NOTES RECEIVED CALL FROM LAB REGARDING CRITICAL RESULT OF POTASSIUM 6.6. DR. MADISON MADE AWARE AND STATED THAT ORDERS HAVE ALREADY BEEN INPUTTED FOR PATIENT IN AM. TELEPHONE CONSENT FOR HEMODIALYSIS ALSO OBTAINED FROM MARGARET BOO, PATIENT'S BROTHER; CONSENT WITNESSED BY ME AND GUILLE MCKEON. WILL CONTINUE TO MONITOR.
--- NOTE | 2020-10-12 18:48 | NUR ---
ROTO GRAVURE PRESS OPERATOR CLOSING NOTES PATIENT IS IN BED RESTING, OBTUNDED. PUPILLARY REFLEX STILL INTACT. BREATHING EVEN, CURRENTLY ON VENT W/ SETTINGS TOLERATED AT THIS TIME; CHANGED TV TO [address] VARELA, RT AWARE. ON TELE MONITORING, READING OF SR/ST W/ HR IN THE UPPER 90'S LOW 100'S, NO CARDIAC DISTRESS NOTED. BEHZAD MIDLINE INTACT AND PATENT, IVF OF NS AT 125CC/HR INFUSING WELL. DOYLE CATH IN PLACE, DRAINING ROLAN-COLORED URINE. SEEN TODAY BY DR. JACKSON W/ ORDERS; DR. MADISON AWARE OF LAB RESULTS W/ ORDERS NOTED. CURRENTLY AWAITING HD CATH INSERTION FOR HEMODIALYSIS. SAFETY PRECS MAINTAINED: BED LOCKED AND ON LOWEST POSITION, SR UP X2, CALL LIGHT W/IN REACH. WILL ENDORSE TO SOCIAL MEDIA JOB TITLES RN FOR TARA.
[2020-10-12] MEDS: ALBUTEROL FS 2.5 MG/0.5 ML VIAL.NEB NEB PRN (19:41)
--- NOTE | 2020-10-12 19:42 | NUR ---
RT NOTE RECIEVED TRACH PT ON CURRENT SETTINGS 22 500 100% +5. PLUGGED INTO RED OUTLET. NO S/S OF DISTRESS OR SOB. TX GIVEN. SXED SMALL AMOUNT OF WHITE SECRETIONS. AMBU BAG BY HOB. WILL CONTINUE TO MONITOR T/O SHIFT. Addendum: 10/12/20 at 1945 by DARCY DA SILVA RT Amended: Links added.
[2020-10-12 19:59] VITALS: BP 92/48
--- NOTE | 2020-10-12 21:40 | NUR ---
FOLLOWED UP WITH MD DANIEL SINGLETON ABOUT PATIENT HD CATH PLACEMENT, WAS TOLD NIMA WILL BE THE ONE TO PLACE IT. TELEPHONE CONSENT OBTAINED FROM BROTHER MARGARET. AWAITING FOR HD CATH PLACEMENT.
[2020-10-12] MEDS: MONTELUKAST SODIUM (10MG) 10 MG TABLET PO SCH (22:19)
--- NOTE | 2020-10-12 23:59 | NUR ---
DAMEON HERRING AT BEDSIDE INSERTING Wendy SUGGS CATH
[2020-10-13] VITALS (9 sets, daily range): BP systolic 73–146; BP diastolic 37–55
--- NOTE | 2020-10-13 00:12 | NUR ---
SPOKE WITH DIALYSIS NURSE AND LIMOUSINE DRIVER ABOUT HD TONIGHT AND MOST LIKELY NOT TO BE DONE TONIGHT. NOTIFIED STATE AUDITOR NIMISHA AND SAID SHE WILL FOLLOW UP WITH MD VACA.
[2020-10-13] MEDS ORDERED: SODIUM POLYSTYRENE SULFONATE 15 G/60 ML BOTTLE PO ONE (01:00)
[2020-10-13] MEDS ORDERED: Calcium Gluconate 1GM/10ML 4.65 MEQ in IV D5W 50 ML IV ONE (01:00)
[2020-10-13] MEDS ORDERED: FUROSEMIDE 100 MG/10 ML VIAL IV ONE (01:00)
[2020-10-13] MEDS ORDERED: Sodium Bicarbonate 100 MEQ in IV D5W 1,000 ML IV PRN (01:00)
[2020-10-13] MEDS ORDERED: SODIUM BICARBONATE SYR 50 MEQ/50 ML DISP.SYRIN IV ONE (01:00)
[2020-10-13] MEDS: IPRATROPIUM NEB FS 0.5 MG/2.5 ML AMPUL.NEB NEB SCH ×3 (01:55→14:27)
[2020-10-13] MEDS: ALBUTEROL HALF STRENGTH 1.25 MG/3 ML VIAL.NEB NEB SCH ×3 (01:56→14:27)
[2020-10-13] MEDS ORDERED: Calcium Gluconate 0.465 MEQ/ML VIAL IV ONE (02:02)
--- NOTE | 2020-10-13 02:41 | NUR ---
ORDERS FROM MD LUTHER CARRIED OUT AND RENDERED.
[2020-10-13] MEDS ORDERED: SODIUM POLYSTYRENE SULFONATE 15 G/60 ML BOTTLE ONE (02:44)
[2020-10-13] MEDS: MEROPENEM 500 MG in IV NS 0.9% 50 ML IV SCH ×2 (03:27→15:30)
--- NOTE | 2020-10-13 07:14 | NUR ---
RN CLOSING NOTES PATIENT IN BED RESTING, OBTUNDED. TOLERATING VENT SETTINGS WELL. NO SIGNS OF ACUTE DISTRESS. NO SIGNS OF PAIN. DOYLE CATH NOTED AND IN PLACE. MIDLINE LOCATED ON L UPPER ARM RUNNING BICARB WITH D5W @ 100 ML/HR. RIGHT FEMORAL HD CATH NOTED AND IN PLACE. NG TUBE LOCATED ON L NARE PATENT AND INTACT. SAFETY PRECAUTIONS IN PLACE WITH BED IN LOWEST POSITION , CALL LIGHT WITHIN REACH, BREAKS ON, SIDE RAILS UP.
--- NOTE | 2020-10-13 07:45 | NUR ---
MS RN OPENING NOTES RECEIVED PT LYING IN BED WITH EYES CLOSED IN NO ACUTE SIGNS OF DISTRESS. HOB ELEVATED. PT IS OBTUNDED WITH TRACH CONNECTED TO MECHANICAL VENT AT PRESCRIBED SETTINGS, TOLERATING SETTINGS WELL WITH NO SOB NOTED. PT IS DNR. EXTERNAL MONITOR SHOWS CURRENT READING OF NSR WITH PVC'S AND BBB WITH HR ON THE 90'S. BEHZAD MIDLINE INTACT WITH BICARP IN D5W RUNNING AT 100ML/HR. NG-TUBE ON LEFT NARE IN PLACE AND CLAMPED. RIGHT FEMORAL HD CATH IN PLACE WITH DRESSING C/D/I. SAFETY MEASURES MAINTAINED: BED IS ON LOWEST POSITION AND LOCKED WITH SIDE RAILS UP X2. CALL LIGHT IS WITHIN REACH. WILL CONTINUE TO MONITOR PATIENT ACCORDINGLY.
[2020-10-13 08:41] LABS: BASOPHILS % (AUTO) 0.1 % (0.0-2.0); HEMATOCRIT 33 % (33-45); HEMOGLOBIN 10.1 g/dL (11.5-14.8); LYMPHOCYTES # (AUTO) 0.7 /CMM (0.8-4.8); LYMPHOCYTES % (AUTO) 2.4 % (20.0-44.0); MEAN CORPUSCULAR HGB CONC 30 g/dl (31.0-36.0); MEAN CORPUSCULAR VOLUME 90 fL (82-100); MONOCYTES # (AUTO) 0.3 /CMM (0.1-1.30); MONOCYTES % (AUTO) 0.9 % (2.0-12.0); NEUTROPHILS # (AUTO) 26.5 /CMM (1.8-8.9); NEUTROPHILS % (AUTO) 96.6 % (43.0-81.0); PLATELET COUNT (AUTO) 209 /CMM (150-450); RED BLOOD CELL COUNT(AUTO) 3.69 MIL/uL (4.0-5.2); WHITE BLOOD COUNT (AUTO) 27.4 K/uL (4.3-11.0)
--- NOTE | 2020-10-13 09:00 | NUR ---
RN NOTES PT'S FIRST HEMODIALYSIS VIA RIGHT FEMORAL HD CATH STARTED BY HD NURSE. WILL CONTINUE TO MONITOR.
[2020-10-13 09:37] LABS: CALCIUM, SERUM 8.7 mg/dL (8.5-10.1); CARBON DIOXIDE 19 mmol/L (21-32); CHLORIDE 112 mmol/L (98-107); CREATININE 5.1 mg/dL (0.6-1.3); POTASSIUM 5.8 mmol/L (3.5-5.1); SODIUM SERUM 150 mmol/L (136-145)
[2020-10-13 09:42] LABS: GLUCOSE 377 mg/dL (74-106); UREA NITROGEN, BLOOD 218 mg/dL (7-18)
[2020-10-13] MEDS: TAMSULOSIN 0.4 MG CAP.SR.24H PO SCH (09:42)
[2020-10-13] MEDS: ENOXAPARIN SODIUM 40 MG/0.4 ML DISP.SYRIN SQ SCH (09:44)
[2020-10-13] MEDS: ALLOPURINOL 100 MG TABLET PO SCH (09:45)
[2020-10-13] MEDS: busPIRone 5 MG TABLET PO SCH ×2 (09:45→17:07)
[2020-10-13] MEDS: LIDOCAINE 5% (PATCH) 1 EA PATCH TP SCH (09:45)
[2020-10-13] MEDS: SENNOSIDES 8.6 MG TABLET PO SCH ×2 (09:46→17:07)
[2020-10-13] MEDS: methylPREDNISolone SOD SUCC 125 MG/2ML VIAL IV SCH ×2 (09:46→17:07)
[2020-10-13] MEDS: ZINC SULFATE 220 MG CAPSULE PO SCH (09:46)
[2020-10-13] MEDS: DOCUSATE SODIUM 100 MG CAPSULE PO SCH ×2 (09:47→17:07)
[2020-10-13] MEDS: FIXODENT DENTURE ADHESIVE TUBE MM SCH ×2 (09:48→17:08)
[2020-10-13] MEDS: AZELASTINE NASAL SPRAY 30 ML BOTTLE NS SCH ×2 (09:49→17:08)
[2020-10-13] MEDS ORDERED: ALBUMIN 25% 25 GM in PREMIX 1 EA IV STA (09:58)
--- NOTE | 2020-10-13 11:02 | NUR ---
RN NOTES HEMODIALYSIS FINISHED WITH 400ML OUTPUT. PT WAS GIVEN ALBUMIN 100 ML DURING HD DUE TO LOW BP.
--- NOTE | 2020-10-13 11:40 | NUR ---
ACADEMIC GUIDANCE SPECIALIST OVERFLOW PATIENT TRASFERED IN BED, GOT REPORT FROM VAN, VENT IN PLACE TRACH 6, AC 22, TV 500, FIO2 100%, PEEP 10, RT PRESENT AND SETTING UP VENT, TELE MONITOR IN PLACE SINUS RHYTHM, CHART RECEIVED, CHECKED FOR POLST AND IS NOT UPDATED, CONTACTING RONN MADISON TO UPDATE NOW, DOYLE IN PLACE DRAINING CLEAR YELLOW URINE, NPO, BEHZAD MIDLINE, R FEMORAL HD CATH INTACT CLEAN DRY FLUSHES WELL, RECEIVED HD THIS AM, WILL CONTINUE TO MONITOR.
--- NOTE | 2020-10-13 11:50 | NUR ---
BUS STARTER OVER FLOW O2 SAT 80%, CALLED RT TO RETURN, RT ASSESSED PATIENT AND SUCTIONED, 02 WENT UP TO 89% MOMENTARILY THEN BACK DOWN TO 82%, TOLD ONLY INTERVENTION AVAILABLE NOW IS TO CHANGE THE VENT MACHINE TO THE LARGER MACHINE, RT SAID THEY WILL TRY AND GET ONE FOR THE PATIENT.
--- NOTE | 2020-10-13 11:56 | NUR ---
RN NOTES PATIENT TRANSFERED TO [facility]/ ICU OVERFLOW ACCOMPANIED BY ME AND RT VIA ACLS PROTOCOL. JC LIM GIVEN REPORT VIA TELEPHONE AND BEDSIDE REPORT GIVEN TO HANG.
--- NOTE | 2020-10-13 12:00 | NUR ---
NCR OPERATOR OVERFLOW SPOKE TO RONN MADISON ABOUT THE POLST, HE UPDATED AND SIGNED IT, NEED TO SPEAK TO THE SON TO VERIFY ORDER ONCE MORE.
--- NOTE | 2020-10-13 12:15 | NUR ---
JEWEL BEARING MAKER OVERFLOW SPOKE TO VIVIENNE THE ICU NURSE AND RONN MDAISON THE VIDEO PRESENTATION OPERATOR ABOUT O2 SAT OF 82%, SAID ONLY INTERVENTION AVAILABLE IS TO KEEP ON THE VENT ON MONITOR, NO OTHER INTERVENTIONS AVAILABLE AT THIS TIME.
[2020-10-13 12:40] LABS: ABG BASE EXCESS -4.7 mmol/L; ABG OXYGEN SATURATION 81.3 % (92.0-98.5); ABG PCO2 34.7 mmHg (35.0-45.0); ABG PH 7.375 (7.350-7.450); ABG PO2 47.1 mmHg (75.0-100.0); AaDO2 631.2 mmHg; COHb 0.2 % (0.5-1.5); MetHb 0.4 % (0.0-1.5); O2Hb 80.8 % (94.0-97.0); PEEP,BG 10 cm H2O; SITE, ABG Right Radial; VENT MODE, BG AC100%; VT, ABG 500 mL
[2020-10-13] MEDS ORDERED: CEFTRIAXONE 2 G in IV D5W 100 ML IV SCH (16:00)
--- NOTE | 2020-10-13 16:45 | NUR ---
ELECTRICAL TIMING DEVICE CALIBRATOR OVERFLOW PATIENT IN BED RESTING, WILL CONTINUE TO MONITOR FOR CHANGES AND HEART RATE CHANGES.
--- NOTE | 2020-10-13 17:30 | NUR ---
nonverbal and nonresponsive without any pulses, cardiac care nurse shows pulseless ecectrical activity pronunced at present time. and was notified nursing airplane pilot supervisor and adm was also notified her brother ABELARDO Cole ,home [phone] call [phone] was also notified, on legacy [id number] [phone] case # [id number]
--- NOTE | 2020-10-13 17:30 | NUR ---
ANIMAL SHELTER MANAGER OVERFLOW PATIENT AT 1730, RN CONFIRMED WITH CHARGE NURSE SOON, RT CALLED TO REMOVE VENTRONN THE SEED CLEANING MACHINE OPERATOR WAS CALL AND NOTIFIED, NO RESUSCITATION WAS PERFORMED BECAUSE THE PATIENT WAS A DNR.
--- NOTE | 2020-10-13 17:45 | NUR ---
DIRECTOR PERSONAL OVERFLOW SPOKE WITH SOON THE CHARGE NURSE AND WAS TOLD TO REMOVE IV LINES, LEAVE IN HEMODIALYSIS CATHETER AND TRACH, CLEANED PATIENT WITH MALIKA GUZMAN AND PUT IN BODY BAD WITH TAG ON LEFT BIG TOE. CALLED FAMILY TO NOTIFY OF THE PATIENT DYING, FAMILY UNDERSTOOD AND WAS GOING TO MAKE A PLAN AND CALL BACK LATER.
--- NOTE | 2020-10-13 18:07 | NUR ---
postmortum care given at this time
--- NOTE | 2020-10-13 18:41 | NUR ---
body sent to [facility] per protocol
== END 2020-10-13 19:41 | disposition expired | DRG 870 ==
LOC: ER 15:51 → OBSVTOIN 20:28 → TRANSITION 20:28 → TELE 10-01 16:26 → ICU 10-03 08:09 → TELE 10-08 14:00 → ICUOV 10-13 11:40
PROVIDERS: ADMIT Student in an Organized Health Care Education/Training Program; ATTEND Nurse Practitioner Acute Care
PROC: 5A1955Z Respiratory Ventilation, Greater than 96 Consecutive Hours (ICD-10-PCS; principal; 2020-09-28)
PROC: 5A12012 Performance of Cardiac Output, Single, Manual (ICD-10-PCS; 2020-10-03)
PROC: 05HY33Z Insertion of Infusion Device into Upper Vein, Percutaneous Approach (ICD-10-PCS; 2020-10-10)
PROC: 5A1D70Z Performance of Urinary Filtration, Intermittent, Less than 6 Hours Per Day (ICD-10-PCS; 2020-10-13)
DX: A41.9 Sepsis, unspecified organism (principal); N17.0 Acute kidney failure with tubular necrosis; I21.A1 Myocardial infarction type 2; R65.21 Severe sepsis with septic shock; G93.41 Metabolic encephalopathy; J69.0 Pneumonitis due to inhalation of food and vomit; I13.0 Hypertensive heart and chronic kidney disease with heart failure and stage 1 through stage 4 chronic kidney disease, or unspecified chronic kidney disease; Z99.11 Dependence on respirator [ventilator] status; J96.10 Chronic respiratory failure, unspecified whether with hypoxia or hypercapnia; E46 Unspecified protein-calorie malnutrition; E87.2 Acidosis; L03.311 Cellulitis of abdominal wall; J90 Pleural effusion, not elsewhere classified; N13.30 Unspecified hydronephrosis; Z68.42 Body mass index [BMI] 45.0-49.9, adult; J98.11 Atelectasis; E66.2 Morbid (severe) obesity with alveolar hypoventilation; Z87.442 Personal history of urinary calculi; I46.9 Cardiac arrest, cause unspecified; E11.22 Type 2 diabetes mellitus with diabetic chronic kidney disease; E03.9 Hypothyroidism, unspecified; D69.6 Thrombocytopenia, unspecified; D63.8 Anemia in other chronic diseases classified elsewhere; K21.9 Gastro-esophageal reflux disease without esophagitis; N18.9 Chronic kidney disease, unspecified; I50.9 Heart failure, unspecified; Z66 Do not resuscitate; E78.5 Hyperlipidemia, unspecified; Z20.828 Contact with and (suspected) exposure to other viral communicable diseases; Z88.0 Allergy status to penicillin; Z88.2 Allergy status to sulfonamides; Z79.4 Long term (current) use of insulin; Z79.01 Long term (current) use of anticoagulants; Z79.51 Long term (current) use of inhaled steroids; Z79.899 Other long term (current) drug therapy; Z74.01 Bed confinement status; Z79.890 Hormone replacement therapy; Z90.49 Acquired absence of other specified parts of digestive tract; T17.990A Other foreign object in respiratory tract, part unspecified in causing asphyxiation, initial encounter; N28.1 Cyst of kidney, acquired; I25.2 Old myocardial infarction; X58.XXXA Exposure to other specified factors, initial encounter; Y92.9 Unspecified place or not applicable; B96.20 Unspecified Escherichia coli [E. coli] as the cause of diseases classified elsewhere; E87.5 Hyperkalemia; L89.159 Pressure ulcer of sacral region, unspecified stage
CPT/HCPCS: 31720; 36410; 36415; 36600; 71045-TC; 76770-TC; 80048-TC; 80053-TC; 80061-TC; 80076-TC; 81001; 82570-TC; 82728-TC; 82803-TC; 82962-TC; 83540-TC; 83735-TC; 83880; 84100-TC; 84155; 84155-TC; 84165; 84300-TC; 84439-TC; 84443-TC; 84478-TC; 84484-TC; 85025-TC; 85730-TC; 86706; 86850-TC; 87040-TC; 87086-TC; 87186-TC; 87340; 90935-TC; 93307-TC; 94003-TC; 94760-TC; 94762-TC; 94799-TC; 95819-TC; 97530-TC; 99082-TC; A4216; A4623; A6253; A6403; A6407; C1750; C1751; C9803; G0378; J0171; J0330; J0610; J0696; J1650; J1815; J1940; J2185; J2405; J2930; J3490; J7030; J7042; J7050; J7060; J7070; P9047; U0003